=== PATIENT | female | born 1975 | race Caucasian/White ===

== ENCOUNTER 2017-03-23 12:59 | Emergency (ER) | payer BC ==
--- NOTE | 2017-03-23 13:20 | EDM.PDOC ---
ED HPI GENERAL MEDICAL PROBLEM - General Chief Complaint: General Stated Complaint: DENTAL PAIN Time Seen by Provider: 03/23/17 13:10 Source of Information: Reports: Patient History Limitations: Reports: No Limitations - History of Present Illness INITIAL COMMENTS - FREE TEXT/NARRATIVE: History of present illness: [41-year-old female comes in complaining of a broken back tooth. Indicates it is a molar that is fully erupted now cracked at the gum. Complains of pain and facial swelling] Review of systems: As per history of present illness and below otherwise all systems reviewed and negative. Past medical history: As per history of present illness and as reviewed below otherwise noncontributory. Surgical history: As per history of present illness and as reviewed below otherwise noncontributory. Social history: No reported history of drug or alcohol abuse. Family history: As per history of present illness and as reviewed below otherwise noncontributory. Physical exam: HEENT: Atraumatic, right-sided lower jaw facial swelling with some erythema and tenderness, pupils reactive, negative for conjunctival pallor or scleral icterus , mucous membranes moist, throat clear, neck supple, nontender, trachea midline. Lungs: Clear to auscultation, breath sounds equal bilaterally, chest nontender. Heart: S1S2, regular, negative for clicks, rubs, or JVD. Abdomen: Soft, nondistended, nontender. Negative for masses or hepatosplenomegaly. Negative for costovertebral tenderness. Pelvis: Stable nontender. Genitourinary: Deferred. Rectal: Deferred. Extremities: Atraumatic, negative for cords or calf pain. Neurovascular unremarkable. Neuro: Awake, alert, oriented. Cranial nerves II through XII unremarkable. Cerebellum unremarkable. Motor and sensory unremarkable throughout. Exam nonfocal. 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 Right-sided facial swelling with some gum erythema and edema consistent with an oral abscess Diagnostics: [] Therapeutics: [] Impression: Dental abscess] Plan: [Antibiotics and pain medicine followup with dentist] Definitive disposition and diagnosis as appropriate pending reevaluation and review of above. Right Upper Tooth/Teeth Pain Score (Numeric/FACES): 7 - Related Data Allergies Allergy/AdvReac Type Severity Reaction Status Date / Time cefaclor [From Ceclor] Allergy Rash Verified 03/23/17 13:14 cephalexin monohydrate Allergy Rash Verified 03/23/17 13:14 [From Keflex] Home Meds: Home Meds . [No Known Home Meds] 05/11/16 [History] Past Medical History - Infectious Disease History Infectious Disease History: Reports: Chicken Pox - Past Surgical History Female Surgical History: Reports: Section Social & Family History - Family History Family Medical History: Noncontributory - Tobacco Use Smoking Status *Q: Current Every Day Smoker Years of Tobacco use: 20 Packs/Tins Daily: 0.5 - Recreational Drug Use Recreational Drug Use: No ED ROS GENERAL - Review of Systems Review Of Systems: See Below (See history of present illness) ED EXAM, GENERAL - Physical Exam Exam: See Below (See history of present illness) Course - Vital Signs Last Recorded V/S: Last Vital Signs Temp 36.8 C 03/23/17 13:10 Pulse 89 03/23/17 13:10 Resp 19 03/23/17 13:10 BP 125/76 03/23/17 13:10 Pulse Ox 98 03/23/17 13:10 Departure - Departure Time of Disposition: 13:20 Disposition: Home, Self-Care 01 Condition: good Clinical Impression: Abscess - Discharge Information Additional Instructions: The following information is given to patients seen in the emergency department who are being discharged to home. This information is to outline your options for follow-up care. We provide all patients seen in our emergency department with a follow-up referral. The need for follow-up, as well as the timing and circumstances, are variable depending upon the specifics of your emergency department visit. If you don't have a primary care physician on staff, we will provide you with a referral. We always advise you to contact your personal physician following an emergency department visit to inform them of the circumstance of the visit and for follow-up with them and/or the need for any referrals to a consulting specialist. The emergency department will also refer you to a specialist when appropriate. This referral assures that you have the opportunity for follow-up care with a specialist. All of these measure are taken in an effort to provide you with optimal care, which includes your follow-up. Under all circumstances we always encourage you to contact your private physician who remains a resource for coordinating your care. When calling for follow-up care, please make the office aware that this follow-up is from your recent emergency room visit. If for any reason you are refused follow-up, please contact the [facility] Emergency Department at and asked to speak to the emergency department charge nurse. Followup with a dentist SANTY Take medication as directed And to ED as needed as discussed
[2017-03-23 13:56] VITALS: BP 117/65
== END 2017-03-23 13:30 | disposition home or self-care (01) ==
LOC: MW.ED 12:59
DX: K04.7 Periapical abscess without sinus (principal); F17.210 Nicotine dependence, cigarettes, uncomplicated; Z88.1 Allergy status to other antibiotic agents; Z98.890 Other specified postprocedural states
CPT/HCPCS: 99282; 99283

== ENCOUNTER 2017-12-23 19:44 | Emergency (ER) | payer BC ==
--- NOTE | 2017-12-23 19:50 | EDM.PDOC ---
ED HPI GENERAL MEDICAL PROBLEM - General Chief Complaint: Genitourinary Problem Stated Complaint: PELVIC INFECTION Time Seen by Provider: 12/23/17 19:46 Source of Information: Reports: Patient History Limitations: Reports: No Limitations - History of Present Illness INITIAL COMMENTS - FREE TEXT/NARRATIVE: HISTORY AND PHYSICAL: History of present illness: Patient is a 42-year-old female who presents to the emergency room with complaints of white milky vaginal discharge. She states she has noticed this for 2-3 days. Reports she has a history of venereal warts which she had treated when she was in her early 20's. Has not had any concerns since that time. She suddenly she has noticed a "lump" on her right upper labia she is concerned she may have a wart. Reports she is in a monogamous relationship and has had no previous concerns of STI's. Denies any dysuria, frequency or hematuria. Denies any constipation/diarrhea. Denies any fever, chills, abdominal pain, nausea or vomiting. Review of systems: As per history of present illness and below otherwise all systems reviewed and negative. Past medical history: As per history of present illness and as reviewed below otherwise noncontributory. Surgical history: As per history of present illness and as reviewed below otherwise noncontributory. Social history: No reported history of drug or alcohol abuse. Family history: As per history of present illness and as reviewed below otherwise noncontributory. Physical exam: General: Well-developed and well-nourished 42-year-old female. Alert and oriented. Nontoxic appearing and in no acute distress. HEENT: Atraumatic, normocephalic, pupils reactive, negative for conjunctival pallor or scleral icterus, mucous membranes moist, throat clear, neck supple, nontender, trachea midline. Lungs: Clear to auscultation, breath sounds equal bilaterally, chest nontender. Heart: S1S2, regular rate and rhythm Abdomen: Soft, obese, nondistended, nontender. Negative for masses or hepatosplenomegaly. Negative for costovertebral tenderness. Pelvis: Stable nontender. Genitourinary: This was done with a supervisor dock at the bedside. External and internal genitalia appear within normal limits. She does have a skin tag at the 10 o'clock position to the right upper labia, flesh-colored. There is a clear milky discharge from the vagina. Swabs were obtained and sent to lab. No odor noted. Rectal: Deferred. Extremities: Atraumatic, negative for cords or calf pain. Neurovascular unremarkable. Neuro: Awake, alert, oriented. Cranial nerves II through XII unremarkable. Cerebellum unremarkable. Motor and sensory unremarkable throughout. Exam nonfocal. Upon getting the patient prepared for discharge, she asked if we would run and HIV, syphilis and "full STD screening". Although she denies any concerns of STDs she states that "while in here and might swell". I did give her some education on community services that are available for such screenings. She voices understanding and is agreeable to plan of care. She denies any questions at this time. Diagnostics: Gonorrhea, chlamydia, PASQUALE Therapeutics: [] Impression: Bacterial vaginosis Plan: 1. Please take the Flagyl as directed. Alcohol consumption should be avoided during treatment and 24 hours after the last dose. 2. The other vaginal cultures are pending. We will call you if there are any positive results that required treatment. 3. Abstain from sexual intercourse until antibiotic is completed, please have partner be tested ([facility]). 4. Follow up with Primary care. Return to the ED as needed and as discussed. Definitive disposition and diagnosis as appropriate pending reevaluation and review of above. Duration: Day(s): vaginal area Pain Score (Numeric/FACES): 1 - Related Data Allergies Allergy/AdvReac Type Severity Reaction Status Date / Time cefaclor [From Ceclor] Allergy Rash Verified 12/23/17 20:03 cephalexin monohydrate Allergy Rash Verified 12/23/17 20:03 [From Keflex] Home Meds: Home Meds . [No Known Home Meds] 05/11/16 [History] Past Medical History HEENT History: Reports: Impaired Vision Other HEENT History: wear glasses TV [employer] ASSIST[employer] History: Reports: Other Endocrine/Metabolic History: gestational diabetes - Infectious Disease History Infectious Disease History: Reports: Chicken Pox - Past Surgical History Female Surgical History: Reports: Section Social & Family History - Family History Family Medical History: Noncontributory - Tobacco Use Smoking Status *Q: Current Every Day Smoker Years of Tobacco use: 20 Packs/Tins Daily: 0.5 Used Tobacco, but Quit: Yes Month Tobacco Last Used: "2 weeks ago" - Caffeine Use Caffeine Use: Reports: Soda Caffeine Use Comment: 2drinks/day - Recreational Drug Use Recreational Drug Use: No ED ROS GENERAL - Review of Systems Review Of Systems: ROS reveals no pertinent complaints other than HPI. ED EXAM, GI/ABD - Physical Exam Exam: See Below (See dictation) Course - Vital Signs Last Recorded V/S: Last Vital Signs Temp 97.5 F 12/23/17 20:00 Pulse 86 12/23/17 20:00 Resp 18 12/23/17 20:00 BP 134/86 12/23/17 20:00 Pulse Ox 98 12/23/17 20:00 - Orders/Labs/Meds Orders: Active Orders 24 hr Category Date Time Status CHLAMYDIA AND GONORRHEA BY [facility] Stat Lab 12/23/17 20:08 Received Labs: Laboratory Tests 12/23/17 Range/Units 20:08 Verenice species DNA NEGATIVE (NEGATIVE) Gardnerella DNA Probe POSITIVE H (NEGATIVE) Trichomonas DNA Probe NEGATIVE (NEGATIVE) Departure - Departure Time of Disposition: 21:19 Disposition: Home, Self-Care 01 Clinical Impression: Bacterial vaginosis - Discharge Information Instructions: Bacterial Vaginosis, [id number] Referrals: Kenny Dasilva PA [Primary Care Provider] - Forms: ED Department Discharge Additional Instructions: My general discharge The following information is given to patients seen in the emergency department who are being discharged to home. This information is to outline your options for follow-up care. We provide all patients seen in our emergency department with a follow-up referral. The need for follow-up, as well as the timing and circumstances, are variable depending upon the specifics of your emergency department visit. If you don't have a primary care physician on staff, we will provide you with a referral. We always advise you to contact your personal physician following an emergency department visit to inform them of the circumstance of the visit and for follow-up with them and/or the need for any referrals to a consulting specialist. The emergency department will also refer you to a specialist when appropriate. This referral assures that you have the opportunity for follow-up care with a specialist. All of these measure are taken in an effort to provide you with optimal care, which includes your follow-up. Under all circumstances we always encourage you to contact your private physician who remains a resource for coordinating your care. When calling for follow-up care, please make the office aware that this follow-up is from your recent emergency room visit. If for any reason you are refused follow-up, please contact the [facility] Emergency Department at and asked to speak to the emergency department charge nurse. [facility] [address] [place] [id number] 1. Please take the Flagyl as directed. Alcohol consumption should be avoided during treatment and 24 hours after the last dose. 2. The other vaginal cultures are pending. We will call you if there are any positive results that required treatment. 3. Abstain from sexual intercourse until antibiotic is completed, please have partner be tested ([facility]). 4. Follow up with Primary care. Return to the ED as needed and as discussed. . - My Orders Last 24 Hours: My Active Orders 12/23/17 20:08 CHLAMYDIA AND GONORRHEA BY [facility] Stat - Assessment/Plan Last 24 Hours: My Active Orders 12/23/17 20:08 CHLAMYDIA AND GONORRHEA BY [facility] Stat
[2017-12-23 20:10] VITALS: BP 134/86
== END 2017-12-23 21:26 | disposition home or self-care (01) ==
LOC: MW.ED 19:44
DX: N76.0 Acute vaginitis (principal); F17.210 Nicotine dependence, cigarettes, uncomplicated; Z88.1 Allergy status to other antibiotic agents
CPT/HCPCS: 87480; 87491; 87510; 87591; 87660; 99283

== ENCOUNTER 2020-06-28 19:55 | Emergency (ER) | payer BC ==
--- NOTE | 2020-06-28 20:59 | EDM.PDOC ---
ED HPI GENERAL MEDICAL PROBLEM - General Chief Complaint: Fever Stated Complaint: FEVER NOT ABLE TO BREAK Time Seen by Provider: 06/28/20 20:00 Source of Information: Reports: Patient, Old Records History Limitations: Reports: No Limitations - History of Present Illness INITIAL COMMENTS - FREE TEXT/NARRATIVE: 45-year-old female past medical history of biliary colic and cholelithiasis presenting with chest discomfort and infectious symptoms. Patient was diagnosed with COVID-19 approximately 1 week ago. She complains of intermittent high fevers to 104 Fahrenheit, malaise, orthopnea, and chest discomfort. She states that she is unable to sleep lying flat at night because she develops chest discomfort and has to sit up. She reports intermittent substernal chest pain described as "pressure" that lasts for a few seconds at a time. It has never lasted for more than a few minutes. Nothing makes this better or worse. The chest discomfort does not radiate. Denies hemoptysis, vomiting, diarrhea. Patient denies history of venous thromboembolism, lower extremity pain or swelling, hemoptysis, recent surgery or immobilization or long travel, history of active malignancy, or hormonal medication/product usage. ROS: A 10-point review of systems was negative, except as noted in the HPI (or in the ROS section of this note). Past medical history: Reviewed, no additional pertinent history. Surgical history: Reviewed in system, no additional pertinent history. Social history: Reviewed in system, no additional pertinent history. Family history: Reviewed in system, no additional pertinent history. Limited physical examination was performed due to COVID pandemic, distanced physical examination to prevent physician exposure and to preserve PPE. Vital signs reviewed. Nursing notes reviewed. Constitutional: Awake, alert, non-distressed. Head: Normocephalic, atraumatic. Eyes: No scleral icterus. Neck: Able to fully flex and extend. Fully rotates side to side. Cardiovascular: No extremity edema. Pulmonary: normal work of breathing, no accessory muscle use. Speaking in full sentences, handling secretions well. Abdomen/GI: nondistended Musculoskeletal: No deformities. Integumentary: Appropriate color for ethnicity, warm, dry, no pallor or jaundice, no rash. Neurologic: Alert, answering questions appropriately, normal speech, no facial droop, moving all extremities well. Normal voice. Psychiatric: Appropriate mood and affect, normal thought process. Headache Pain Score (Numeric/FACES): 4 - Related Data Allergies Allergy/AdvReac Type Severity Reaction Status Date / Time cefaclor [From Ceclor] Allergy Rash Verified 06/28/20 20:27 cephalexin monohydrate Allergy Rash Verified 06/28/20 20:27 [From Keflex] Home Meds: Home Meds Ferrous Sulfate 325 mg PO DAILY #60 tablet 06/28/20 [Rx] Past Medical History HEENT History: Reports: Impaired Vision Other HEENT History: wear glasses Cardiovascular History: Reports: None Respiratory History: Reports: Other (See Below) Other Respiratory History: walking pneumonia Gastrointestinal History: Reports: Cholelithiasis Genitourinary History: Reports: None [employer] History: Reports: Musculoskeletal History: Reports: None Neurological History: Reports: None Psychiatric History: Reports: None Endocrine/Metabolic History: Reports: Diabetes, Gestational, Obesity/BMI 30+ Other Endocrine/Metabolic History: gestational diabetes Hematologic History: Reports: None Immunologic History: Reports: None Oncologic (Cancer) History: Reports: None Dermatologic History: Reports: None - Infectious Disease History Infectious Disease History: Reports: Chicken Pox - Past Surgical History Head Surgeries/Procedures: Reports: None GI Surgical History: Reports: Cholecystectomy Female Surgical History: Reports: Section, Other (See Below) Other Female Surgeries/Procedures: laser surgery cervix Social & Family History - Family History Family Medical History: Noncontributory - Tobacco Use Smoking Status *Q: Never Smoker Second Hand Smoke Exposure: No - Caffeine Use Caffeine Use: Reports: Soda Caffeine Use Comment: 2drinks/day - Recreational Drug Use Recreational Drug Use: No ED ROS GENERAL - Review of Systems Review Of Systems: See Below ED EXAM, GENERAL - Physical Exam Exam: See Below EKG INTERPRETATION EKG Interpretation Comments: 12-Lead ECG Interpretation Acquired: 2054 Rhythm: Sinus rhythm Rate: 89 bpm [place]: Normal Intervals: Normal Ectopy: None Ischemic Changes: None apparent RV Strain: No obvious RV strain pattern. ST Segments/T-Waves: No notable changes Interpretation: Unremarkable Course - Vital Signs Text/Narrative:: Patient hemodynamically stable, afebrile, well-appearing, looks nontoxic. Differential diagnosis includes but is not limited to: COVID-19, ACS, pulmonary embolism, aortic dissection, acute systolic heart failure, pneumonia, pneumothorax, pericardial effusion, pleural effusion, pericarditis, endocard itis, esophageal rupture, GERD, drug-induced chest pain, chest wall pain, and many others. Labs show leukopenia, microcytic anemia, normal platelet count. Normal INR. Slight hypokalemia. Elevated CRP. Negative troponin, normal LFTs. Negative test. Clear chest x-ray. Twelve-lead EKG nonischemic. No objective evidence of acute coronary syndrome. Low suspicion for PE given lack of dyspnea, patient is not tachypneic or hypoxic or tachycardic. No RV strain pattern on EKG. No evidence of a pulmonary infiltrate on x-ray to suggest pneumonia. Afebrile here. No clinical evidence of congestive heart failure. Low suspicion for aortic dissection given lack of radiation of pain to the back and the fact the patient is not significantly hypertensive. Chest discomfort and other symptoms are typical for known COVID-19 infection. No evidence of a more serious or acute process that would require antibiotics or admission to the hospital at this point. We discussed symptomatic treatment including [id number] acetaminophen and ibuprofen for fever and body aches, plenty of fluids. Discussed return precautions including worsening chest pain or shortness of breath. Will prescribe a course of iron supplementation for the microcytic anemia and have her follow-up in a family medicine clinic in the next 1 to 2 months for reevaluation of her anemia. Plan: Patient is stable to discharge home with outpatient primary care clinic follow-up. Strict emergency department return precautions were provided, patient indicated understanding. All questions were answered prior to departure. Discharged in good condition. Last Recorded V/S: Last Vital Signs Temp 36.7 C 06/28/20 20:28 Pulse 94 06/28/20 21:29 Resp 20 06/28/20 21:29 BP 141/91 H 06/28/20 21:29 Pulse Ox 93 L 06/28/20 21:29 - Orders/Labs/Meds Orders: Active Orders 24 hr Category Date Time Status EKG Documentation Completion [RC] STAT Care 06/28/20 20:38 Active Isolation [COMM] Stat Oth 06/28/20 20:33 Active Labs: Laboratory Tests 06/28/20 06/28/20 06/28/20 Range/Units 21:07 21:07 21:07 WBC 3.72 L (4.0-11.0) K/uL RBC 4.63 (4.30-5.90) M/uL Hgb 9.2 L (12.0-16.0) g/dL Hct 31.6 L (36.0-46.0) % MCV 68.3 L (80.0-98.0) fL MCH 19.9 L (27.0-32.0) pg MCHC 29.1 L (31.0-37.0) g/dL RDW Std Deviation 42.7 (28.0-62.0) fl RDW Coeff of Mei 17 H (11.0-15.0) % Plt Count 207 (150-400) K/uL MPV 9.70 (7.40-12.00) fL Neut % (Auto) 62.2 (48.0-80.0) % Lymph % (Auto) 34.1 (16.0-40.0) % [place] % (Auto) 3.2 (0.0-15.0) % Eos % (Auto) 0.5 (0.0-7.0) % Baso % (Auto) 0.0 (0.0-1.5) % Neut # (Auto) 2.3 (1.4-5.7) K/uL Lymph # (Auto) 1.3 (0.6-2.4) K/uL [place] # (Auto) 0.1 (0.0-0.8) K/uL Eos # (Auto) 0.0 (0.0-0.7) K/uL Baso # (Auto) 0.0 (0.0-0.1) K/uL Nucleated RBC % 0.0 /100WBC Nucleated RBCs # 0 K/uL INR Sodium 137 (136-145) mmol/L Potassium 3.4 L (3.5-5.1) mmol/L Chloride 101 (98-107) mmol/L Carbon Dioxide 25.7 (21.0-32.0) mmol/L BUN 7 (7.0-18.0) mg/dL Creatinine 0.8 (0.6-1.0) mg/dL Est Cr Clr Drug Dosing 78.30 mL/min Estimated GFR (MDRD) > 60.0 ml/min Glucose 118 H (74-106) mg/dL Calcium 8.0 L (8.5-10.1) mg/dL Total Bilirubin 0.2 (0.2-1.0) mg/dL AST 25 (15-37) IU/L ALT 37 (14-63) IU/L Alkaline Phosphatase 94 (46-116) U/L Troponin I < 0.050 (0.000-0.056) ng/mL C-Reactive Protein 4.80 H (0.00-0.90) mg/dL B-Natriuretic Peptide (<100) PG/ML Total Protein 7.1 (6.4-8.2) g/dL Albumin 3.4 (3.4-5.0) g/dL Globulin 3.7 (2.6-4.0) g/dL Albumin/Globulin Ratio 0.9 (0.9-1.6) HCG, Qual NEGATIVE (NEG) 06/28/20 06/28/20 Range/Units 21:07 21:07 WBC (4.0-11.0) K/uL RBC (4.30-5.90) M/uL Hgb (12.0-16.0) g/dL Hct (36.0-46.0) % MCV (80.0-98.0) fL MCH (27.0-32.0) pg MCHC (31.0-37.0) g/dL RDW Std Deviation (28.0-62.0) fl RDW Coeff of Mei (11.0-15.0) % Plt Count (150-400) K/uL MPV (7.40-12.00) fL Neut % (Auto) (48.0-80.0) % Lymph % (Auto) (16.0-40.0) % [place] % (Auto) (0.0-15.0) % Eos % (Auto) (0.0-7.0) % Baso % (Auto) (0.0-1.5) % Neut # (Auto) (1.4-5.7) K/uL Lymph # (Auto) (0.6-2.4) K/uL [place] # (Auto) (0.0-0.8) K/uL Eos # (Auto) (0.0-0.7) K/uL Baso # (Auto) (0.0-0.1) K/uL Nucleated RBC % /100WBC Nucleated RBCs # K/uL INR 0.97 Sodium (136-145) mmol/L Potassium (3.5-5.1) mmol/L Chloride (98-107) mmol/L Carbon Dioxide (21.0-32.0) mmol/L BUN (7.0-18.0) mg/dL Creatinine (0.6-1.0) mg/dL Est Cr Clr Drug Dosing mL/min Estimated GFR (MDRD) ml/min Glucose (74-106) mg/dL Calcium (8.5-10.1) mg/dL Total Bilirubin (0.2-1.0) mg/dL AST (15-37) IU/L ALT (14-63) IU/L Alkaline Phosphatase (46-116) U/L Troponin I (0.000-0.056) ng/mL C-Reactive Protein (0.00-0.90) mg/dL B-Natriuretic Peptide 7 (<100) PG/ML Total Protein (6.4-8.2) g/dL Albumin (3.4-5.0) g/dL Globulin (2.6-4.0) g/dL Albumin/Globulin Ratio (0.9-1.6) HCG, Qual (NEG) Departure - Departure Time of Disposition: 22:37 Disposition: Home, Self-Care 01 Condition: Good Clinical Impression: COVID-19 virus infection, Atypical chest pain Iron deficiency anemia Qualifiers: Iron deficiency anemia type: other iron deficiency Qualified Code(s): D50.8 - Other iron deficiency anemias Prescriptions: Ferrous Sulfate 325 mg PO DAILY #60 tablet Instructions: COVID-19 Frequently Asked Questions, Preventing Iron Deficiency Anemia, Adult, Anemia, Nonspecific Chest Pain, Adult, COVID-19: How to Protect Yourself and Others - CDC Referrals: [facility] - Family Practice [Provider Group] - 1 Week Forms: ED Department Discharge Additional Instructions: You were seen in the emergency department for chest pain and fever. Your blood work and x-rays look reassuring at this point. It is not uncommon to have chest pain with a COVID infection. If your chest pain worsens or if you have trouble breathing come back to the ER right away. You do have iron deficiency anemia by your blood work and we prescribed an iron supplement. Take this as directed and follow-up with family medicine clinic in the next 1 to 2 months for reevaluation. Please return the emergency department immediately if your symptoms worsen or if you feel worse. Thank you for choosing the [facility] emergency department in [place] for your medical needs today. It was a pleasure caring for you. The following information is given to patients seen in the emergency department who are being discharged. This information is to outline your options for follow-up care. We provide all patients seen in our emergency department with a follow-up referral. The need for follow-up, as well as the timing and circumstances, are variable depending upon the specifics of your emergency department visit. If you don't have a primary care physician on staff, we will provide you with a referral. We always advise you to contact your personal physician following an emergency department visit to inform them of the circumstance of the visit and for follow-up with them and/or the need for any referrals to a consulting specialist. The emergency department will also refer you to a specialist when appropriate. This referral assures that you have the opportunity for follow-up care with a specialist. All of these measure are taken in an effort to provide you with optimal care, which includes your follow-up. Under all circumstances we always encourage you to contact your private physician who remains a resource for coordinating your care. When calling for follow-up care, please make the office aware that this follow-up is from your recent emergency room visit. If for any reason you are refused follow-up, please contact the [facility] Emergency Department at and asked to speak to the emergency department charge nurse. If you do not have a primary care physician that is caring for you, you can contact these clinics below to set up an appointment to establish care: [facility] - Primary Care [address] [place] [id number] [facility] [address] [place] [id number] Sepsis Event Note (ED) - Evaluation Sepsis Screening Result: Possible Sepsis Risk - Focused Exam Vital Signs: Vital Signs Temp Pulse Resp BP Pulse Ox 06/28/20 21:29 94 20 141/91 H 93 L 06/28/20 20:28 36.7 C 99 18 141/91 H 96 - My Orders Last 24 Hours: My Active Orders 06/28/20 20:33 Isolation [COMM] Stat 06/28/20 20:38 EKG Documentation Completion [RC] STAT - Assessment/Plan Last 24 Hours: My Active Orders 06/28/20 20:33 Isolation [COMM] Stat 06/28/20 20:38 EKG Documentation Completion [RC] STAT
[2020-06-28 21:34] VITALS: PULSE 94
[2020-06-28 21:38] LABS: BLOOD UREA NITROGEN,BUN 7 mg/dL (7.0-18.0); CARBON DIOXIDE,CO2 25.7 mmol/L (21.0-32.0); CHLORIDE,CL 101 mmol/L (98-107); GLUCOSE RANDOM 118 mg/dL (74-106); POTASSIUM,K 3.4 mmol/L (3.5-5.1); SODIUM,NA 137 mmol/L (136-145)
--- NOTE | 2020-06-28 22:23 | CR ---
Chest: Portable view of the chest was obtained. Comparison: No prior chest x-rays available. Heart size is felt to be slightly prominent due to portable technique. Upper mediastinum is normal. Lungs are clear with no acute parenchymal change. Bony structures are grossly intact. Impression: 1. Nothing acute is seen on portable chest x-ray. Diagnostic code #1 Study was dictated in MDT
[2020-06-28 23:05] VITALS: BP 130/82
== END 2020-06-28 22:57 | disposition home or self-care (01) ==
LOC: MW.ED 19:55
DX: U07.1 COVID-19 (principal); R07.89 Other chest pain; D50.9 Iron deficiency anemia, unspecified; E66.9 Obesity, unspecified; Z68.43 Body mass index [BMI] 50.0-59.9, adult; Z88.1 Allergy status to other antibiotic agents; Z79.899 Other long term (current) drug therapy; Z90.49 Acquired absence of other specified parts of digestive tract
CPT/HCPCS: 36415; 71045; 71045-26; 80053; 83880; 84484; 84703; 85025; 85610; 86140; 93005; 99283; 99285-25

== ENCOUNTER 2020-07-02 13:08 | Inpatient (IN) | payer BC, OTHER ==
[2020-07-02] MEDS ORDERED: Albuterol 8 GM Inhaler INH ONE (13:31)
[2020-07-02] MEDS ORDERED: Dexamethasone 4 MG Tab PO ONE (13:34)
--- NOTE | 2020-07-02 13:34 | EDM.PDOC ---
ED HPI GENERAL MEDICAL PROBLEM - General Chief Complaint: Respiratory Problem Stated Complaint: SOB COVID Time Seen by Provider: 07/02/20 13:22 - History of Present Illness INITIAL COMMENTS - FREE TEXT/NARRATIVE: History of present illness: Patient has positive COVID testing has been sick for approximately 8 days she has had increasing shortness of breath and increasing productive cough over the past 24 hours and became concerned about her breathing and came to the emergency department she denies any fever chills this time she had been having fevers and is taking Tylenol [id number] but no noted fevers in the last couple days she denies any leg pain leg swelling no chest pain nothing seems to make it better or worse she is a non-smoker no history of asthma Review of systems: As per history of present illness and below otherwise all systems reviewed and negative. Past medical history: As per history of present illness and as reviewed below otherwise noncontributory. Surgical history: As per history of present illness and as reviewed below otherwise noncontributory. Social history: No reported history of drug or alcohol abuse. Family history: As per history of present illness and as reviewed below otherwise noncontributory. Physical exam: HEENT: Atraumatic, normocephalic, pupils reactive, negative for conjunctival pallor or scleral icterus, mucous membranes moist, throat clear, neck supple, no ntender, trachea midline. Lungs: Clear to auscultation, breath sounds equal bilaterally, chest nontender. No respiratory distress no increased work of breathing Heart: S1S2, regular, negative for clicks, rubs, or JVD. Abdomen: Soft, nondistended, nontender. Negative for masses or hepatosplenomegaly. Negative for costovertebral tenderness. Pelvis: Stable nontender. Genitourinary: Deferred. Rectal: Deferred. Extremities: Atraumatic, negative for cords or calf pain. Neurovascular unremarkable. Neuro: Awake, alert, oriented. Cranial nerves II through XII unremarkable. Cerebellum unremarkable. Motor and sensory unremarkable throughout. Exam nonfocal. Diagnostics: [] Therapeutics: [] Impression: COVID, dyspnea [] Plan: She will get some albuterol inhaler Decadron incentive spirometry and I will check a chest x-ray. [] Definitive disposition and diagnosis as appropriate pending reevaluation and review of above. - Related Data Allergies Allergy/AdvReac Type Severity Reaction Status Date / Time cefaclor [From Ceclor] Allergy Rash Verified 07/02/20 18:54 cephalexin monohydrate Allergy Rash Verified 07/02/20 18:54 [From Keflex] Home Meds: Home Meds Ferrous Sulfate 325 mg PO DAILY #60 tablet 06/28/20 [Rx] Past Medical History HEENT History: Reports: Impaired Vision Other HEENT History: wear glasses Cardiovascular History: Reports: None Respiratory History: Reports: Other (See Below) Other Respiratory History: walking pneumonia Gastrointestinal History: Reports: Cholelithiasis Genitourinary History: Reports: None [employer]PUT[employer] History: Reports: Musculoskeletal History: Reports: None Neurological History: Reports: None Psychiatric History: Reports: None Endocrine/Metabolic History: Reports: Diabetes, Gestational, Obesity/BMI 30+ Other Endocrine/Metabolic History: gestational diabetes Hematologic History: Reports: None Immunologic History: Reports: None Oncologic (Cancer) History: Reports: None Dermatologic History: Reports: None - Infectious Disease History Infectious Disease History: Reports: Chicken Pox - Past Surgical History Head Surgeries/Procedures: Reports: None GI Surgical History: Reports: Cholecystectomy Female Surgical History: Reports: Section, Other (See Below) Other Female Surgeries/Procedures: laser surgery cervix Social & Family History - Family History Family Medical History: Noncontributory - Caffeine Use Caffeine Use: Reports: Soda Caffeine Use Comment: 2drinks/day ED ROS GENERAL - Review of Systems Review Of Systems: See Below ED EXAM, GENERAL - Physical Exam Exam: See Below EKG INTERPRETATION EKG Interpretation Comments: EKG is normal sinus rhythm rate of [address]-T changes no alex ischemia read and interpreted by me Course - Vital Signs Last Recorded V/S: Last Vital Signs Temp 36.6 C 07/03/20 15:06 Pulse 79 07/03/20 15:06 Resp 18 07/03/20 15:06 BP 147/90 H 07/03/20 15:06 Pulse Ox 92 L 07/03/20 15:06 - Orders/Labs/Meds Orders: Active Orders 24 hr Category Date Time Status Ferrous Sulfate Med 07/03/20 09:00 Active 325 mg PO DAILY Medication Orders Albuterol/Ipratropium (Combivent Respimat) 0 gm INH Q4H PRN PRN Reason: Dyspnea Last Admin: 07/03/20 15:08 Dose: 1 puff Documented by: Admin: 07/03/20 04:38 Dose: 1 puff Documented by: Admin: 07/02/20 21:11 Dose: 1 inhalation Documented by: MERRILL Dexamethasone (Dexamethasone) 6 mg PO DAILY [facility] Last Admin: 07/03/20 08:43 Dose: 6 mg Documented by: GENEVIEVE Enoxaparin Sodium (Lovenox) 130 mg SUBCUT Q12H [facility] Last Admin: 07/03/20 18:40 Dose: 130 mg Documented by: Admin: 07/03/20 08:41 Dose: 130 mg Documented by: Admin: 07/03/20 02:14 Dose: Not Given Documented by: MERRILL Ferrous Sulfate (Ferrous Sulfate) 325 mg PO DAILY [facility] Last Admin: 07/03/20 08:43 Dose: 325 mg Documented by: GENEVIEVE Guaifenesin (Robitussin) 100 mg PO Q4H PRN PRN Reason: Cough Ceftriaxone Sodium 1 gm/ (Sodium Chloride) 50 mls @ 100 mls/hr IV Q24H [facility] Last Admin: 07/02/20 20:07 Dose: 100 mls/hr Documented by: MERRILL Azithromycin 500 mg/ Sodium (Chloride) 250 mls @ 250 mls/hr IV Q24H [facility] Last Admin: 07/02/20 20:54 Dose: 250 mls/hr Documented by: MERRILL Insulin Aspart (Novolog) 0 unit SUBCUT TIDAC [facility]; Protocol Last Admin: 07/03/20 18:37 Dose: 3 unit Documented by: Admin: 07/03/20 13:38 Dose: 2 unit Documented by: GENEVIEVE Ondansetron HCl (Zofran) 4 mg IVPUSH Q4H PRN PRN Reason: Nausea Last Admin: 07/02/20 21:14 Dose: 4 mg Documented by: MERRILL Labs: Laboratory Tests 07/02/20 07/02/20 07/02/20 Range/Units 14:40 14:46 14:46 WBC 3.20 L (4.0-11.0) K/uL RBC 4.49 (4.30-5.90) M/uL Hgb 8.9 L (12.0-16.0) g/dL Hct 30.4 L (36.0-46.0) % MCV 67.7 L (80.0-98.0) fL MCH 19.8 L (27.0-32.0) pg MCHC 29.3 L (31.0-37.0) g/dL RDW Std Deviation 44.2 (28.0-62.0) fl RDW Coeff of Mei 18 H (11.0-15.0) % Plt Count 258 (150-400) K/uL MPV 9.20 (7.40-12.00) fL Neut % (Auto) 70.3 (48.0-80.0) % Lymph % (Auto) 26.6 (16.0-40.0) % [place] % (Auto) 2.8 (0.0-15.0) % Eos % (Auto) 0.0 (0.0-7.0) % Baso % (Auto) 0.3 (0.0-1.5) % Neut # (Auto) 2.3 (1.4-5.7) K/uL Lymph # (Auto) 0.9 (0.6-2.4) K/uL [place] # (Auto) 0.1 (0.0-0.8) K/uL Eos # (Auto) 0.0 (0.0-0.7) K/uL Baso # (Auto) 0.0 (0.0-0.1) K/uL Nucleated RBC % 0.0 /100WBC Nucleated RBCs # 0 K/uL Lactate (0.20-2.00) mmol/L Sodium 137 (136-145) mmol/L Potassium 3.5 (3.5-5.1) mmol/L Chloride 101 (98-107) mmol/L Carbon Dioxide 28.9 (21.0-32.0) mmol/L BUN 7 (7.0-18.0) mg/dL Creatinine 0.8 (0.6-1.0) mg/dL Est Cr Clr Drug Dosing 78.30 mL/min Estimated GFR (MDRD) > 60.0 ml/min Glucose 177 H (74-106) mg/dL Calcium 8.3 L (8.5-10.1) mg/dL Total Bilirubin 0.2 (0.2-1.0) mg/dL AST 62 H (15-37) IU/L ALT 73 H (14-63) IU/L Alkaline Phosphatase 104 (46-116) U/L Troponin I (0.000-0.056) ng/mL B-Natriuretic Peptide (<100) PG/ML Total Protein 6.9 (6.4-8.2) g/dL Albumin 3.1 L (3.4-5.0) g/dL Globulin 3.8 (2.6-4.0) g/dL Albumin/Globulin Ratio 0.8 L (0.9-1.6) SARS Virus RNA (PCR) POSITIVE H (NEGATIVE) 07/02/20 07/02/20 07/02/20 Range/Units 14:46 14:46 14:46 WBC (4.0-11.0) K/uL RBC (4.30-5.90) M/uL Hgb (12.0-16.0) g/dL Hct (36.0-46.0) % MCV (80.0-98.0) fL MCH (27.0-32.0) pg MCHC (31.0-37.0) g/dL RDW Std Deviation (28.0-62.0) fl RDW Coeff of Mei (11.0-15.0) % Plt Count (150-400) K/uL MPV (7.40-12.00) fL Neut % (Auto) (48.0-80.0) % Lymph % (Auto) (16.0-40.0) % [place] % (Auto) (0.0-15.0) % Eos % (Auto) (0.0-7.0) % Baso % (Auto) (0.0-1.5) % Neut # (Auto) (1.4-5.7) K/uL Lymph # (Auto) (0.6-2.4) K/uL [place] # (Auto) (0.0-0.8) K/uL Eos # (Auto) (0.0-0.7) K/uL Baso # (Auto) (0.0-0.1) K/uL Nucleated RBC % /100WBC Nucleated RBCs # K/uL Lactate 1.1 (0.20-2.00) mmol/L Sodium (136-145) mmol/L Potassium (3.5-5.1) mmol/L Chloride (98-107) mmol/L Carbon Dioxide (21.0-32.0) mmol/L BUN (7.0-18.0) mg/dL Creatinine (0.6-1.0) mg/dL Est Cr Clr Drug Dosing mL/min Estimated GFR (MDRD) ml/min Glucose (74-106) mg/dL Calcium (8.5-10.1) mg/dL Total Bilirubin (0.2-1.0) mg/dL AST (15-37) IU/L ALT (14-63) IU/L Alkaline Phosphatase (46-116) U/L Troponin I < 0.050 (0.000-0.056) ng/mL B-Natriuretic Peptide 59 (<100) PG/ML Total Protein (6.4-8.2) g/dL Albumin (3.4-5.0) g/dL Globulin (2.6-4.0) g/dL Albumin/Globulin Ratio (0.9-1.6) SARS Virus RNA (PCR) (NEGATIVE) Meds: Medications Generic Name Dose Route Start Last Admin Trade Name Freq PRN Reason Stop Dose Admin Albuterol/Ipratropium 0 gm 07/02/20 17:08 07/03/20 15:08 Combivent Respimat INH 1 puff Q4H PRN Administration Dyspnea Dexamethasone 6 mg 07/03/20 09:00 07/03/20 08:43 Dexamethasone PO 6 mg DAILY MIRANDA Administration Enoxaparin Sodium 130 mg 07/02/20 19:30 07/03/20 18:40 Lovenox SUBCUT 130 mg Q12H MIRANDA Administration Ferrous Sulfate 325 mg 07/03/20 09:00 07/03/20 08:43 Ferrous Sulfate PO 325 mg DAILY MIRANDA Administration Guaifenesin 100 mg 07/03/20 15:40 Robitussin PO Q4H PRN Cough Ceftriaxone Sodium 1 gm/ 50 mls @ 100 mls/hr 07/02/20 19:45 07/02/20 20:07 Sodium Chloride IV 100 mls/hr Q24H MIRANDA Administration Azithromycin 500 mg/ Sodium 250 mls @ 250 mls/hr 07/02/20 19:45 07/02/20 20:54 Chloride IV 250 mls/hr Q24H MIRANDA Administration Insulin Aspart 0 unit 07/03/20 11:30 07/03/20 18:37 Novolog SUBCUT 3 unit TIDAC MIRANDA Administration Protocol Ondansetron HCl 4 mg 07/02/20 17:00 07/02/20 21:14 Zofran IVPUSH 4 mg Q4H PRN Administration Nausea Discontinued Medications Generic Name Dose Route Start Last Admin Trade Name Freq PRN Reason Stop Dose Admin Acetaminophen 650 mg 07/02/20 17:00 Tylenol PO Q4H PRN Pain (Mild 1-3)/fever Albuterol 4 gm 07/02/20 13:31 07/02/20 13:52 Ventolin Hfa INH 07/02/20 13:32 Not Given ONETIME ONE Albuterol 4 gm 07/02/20 13:45 07/02/20 13:51 Ventolin Hfa INH 07/02/20 13:46 2 puff ONETIME ONE Administration Dexamethasone 8 mg 07/02/20 13:34 07/02/20 14:02 Dexamethasone PO 07/02/20 13:35 8 mg ONETIME ONE Administration Enoxaparin Sodium 40 mg 07/02/20 17:00 07/02/20 18:39 Lovenox SUBCUT 40 mg Q24H MIRANDA Administration Piperacillin Sod/Tazobactam 50 mls @ 100 mls/hr 07/02/20 14:29 07/02/20 15:06 Sod 3.375 gm/ Sodium Chloride IV 07/02/20 14:58 100 mls/hr ONETIME ONE Administration Vancomycin HCl 1.5 gm/ Sodium 500 mls @ 333 mls/hr 07/02/20 14:30 07/02/20 15:18 Chloride IV 07/02/20 16:00 Not Given ONETIME ONE Vancomycin HCl 1.5 gm/ Premix 300 mls @ 300 mls/hr 07/02/20 15:01 07/02/20 15:11 IV 07/02/20 15:02 300 mls/hr ONETIME ONE Administration Vancomycin HCl 1.5 gm/ Premix 300 mls @ 300 mls/hr 07/02/20 15:17 07/02/20 17:48 IV 07/02/20 15:18 Not Given ONETIME ONE REMDESIVIR (EUA) 200 mg/ 250 mls @ 250 mls/hr 07/02/20 19:32 07/02/20 22:05 Sodium Chloride IV 07/02/20 19:33 250 mls/hr ONETIME ONE Administration Insulin Aspart 0 unit 07/03/20 17:00 Novolog SUBCUT TIDAC [facility] Protocol Departure - Departure Time of Disposition: 17:00 Disposition: Refer to Observation Clinical Impression: COVID-19 virus infection - Discharge Information Sepsis Event Note (ED) - Evaluation Sepsis Screening Result: No Definite Risk
[2020-07-02] MEDS ORDERED: Albuterol HFA 18 Gm Inhaler INH ONE (13:45)
--- NOTE | 2020-07-02 14:05 | CR ---
Chest: Portable view of the chest was obtained. Comparison: Prior chest x-ray of 06/28/20. Increasing lung markings from prior exam. Heart is enlarged. Upper mediastinum is normal. Impression: 1. Increasing lung markings are noted from prior study. Findings could represent mild CHF with differential including diffuse bronchitis. Diagnostic code #3 This report was dictated in MDT
[2020-07-02] MEDS ORDERED: Piperacillin/Tazobactam 3.375 GM in Sodium Chloride 0.9% 50 ML IV ONE (14:29)
[2020-07-02] MEDS ORDERED: Vancomycin 1.5 GM in Sodium Chloride 0.9% 500 ML IV ONE (14:30)
[2020-07-02 15:24] LABS: BLOOD UREA NITROGEN,BUN 7 mg/dL (7.0-18.0); CARBON DIOXIDE,CO2 28.9 mmol/L (21.0-32.0); CHLORIDE,CL 101 mmol/L (98-107); GLUCOSE RANDOM 177 mg/dL (74-106); POTASSIUM,K 3.5 mmol/L (3.5-5.1); SODIUM,NA 137 mmol/L (136-145)
--- NOTE | 2020-07-02 16:52 | PCM.HP.2 ---
<Luca Avilez - Last Filed: 07/02/20 19:38> H&P History of Present Illness - General Date of Service: 07/02/20 Admit Problem/Dx: Admission Diagnosis/Problem Admission Diagnosis/Problem Hypoxia Source of Information: Patient History Limitations: Reports: No Limitations - History of Present Illness Initial Comments - Free Text/Narative: Patient admitted for dyspnea secondary to COVID infection. Patient states that she first tested positive for COVID 10 days ago but did not have any significant symptoms. Patient states that her symptoms of SOB and cough have become significantly worse in the past 24 hrs. She denies fever or chills but states diarrhea, nausea and loss of appetite. Patient was having fever the past few days which she was treating with Tylenol but is not having fevers currently. Patient has no cardiac, respiratory or GI PMH. Patient quit smoking 3 years ago and denies asthma. Pt denies using oxygen at home but is requiring between 2-3L O2 at time of admission. - Related Data Allergies/Adverse Reactions: Allergies Allergy/AdvReac Type Severity Reaction Status Date / Time cefaclor [From Ceclor] Allergy Rash Verified 07/02/20 18:54 cephalexin monohydrate Allergy Rash Verified 07/02/20 18:54 [From Keflex] Home Medications: Home Meds Ferrous Sulfate 325 mg PO DAILY #60 tablet 06/28/20 [Rx] Past Medical History HEENT History: Reports: Impaired Vision Other HEENT History: wear glasses Cardiovascular History: Reports: None Respiratory History: Reports: Other (See Below) Other Respiratory History: walking pneumonia Gastrointestinal History: Reports: Cholelithiasis Genitourinary History: Reports: None [employer] History: Reports: Musculoskeletal History: Reports: None Neurological History: Reports: None Psychiatric History: Reports: None Endocrine/Metabolic History: Reports: Diabetes, Gestational, Obesity/BMI 30+ Other Endocrine/Metabolic History: gestational diabetes Hematologic History: Reports: None Immunologic History: Reports: None Oncologic (Cancer) History: Reports: None Dermatologic History: Reports: None - Infectious Disease History Infectious Disease History: Reports: Chicken Pox - Past Surgical History Head Surgeries/Procedures: Reports: None GI Surgical History: Reports: Cholecystectomy Female Surgical History: Reports: Section, Other (See Below) Other Female Surgeries/Procedures: laser surgery cervix Social & Family History - Family History Family Medical History: Noncontributory - Caffeine Use Caffeine Use: Reports: Soda Caffeine Use Comment: 2drinks/day H&P Review of Systems - Review of Systems: Review Of Systems: See Below General: Reports: Fatigue, Decreased Appetite. Denies: Fever, Chills HEENT: Denies: Dysphasia, Headaches, Visual Changes Pulmonary: Reports: Shortness of Breath, Cough. Denies: Wheezing, Pleuritic Chest Pain, Sputum Cardiovascular: Reports: Dyspnea on Exertion, Orthopnea. Denies: Chest Pain, Palpitations, Edema, Lightheadedness Gastrointestinal: Reports: Diarrhea, Decreased Appetite, Nausea. Denies: Abdominal Pain Musculoskeletal: Denies: Joint Swelling, Muscle Stiffness Psychiatric: Denies: Confusion Neurological: Denies: Confusion, Dizziness, Headache, Numbness Exam - Exam Exam: See Below - Vital Signs Vital Signs: Last Vital Signs Temp 96.3 F L 07/02/20 13:11 Pulse 83 07/02/20 15:14 Resp 16 07/02/20 13:11 BP 129/57 L 07/02/20 15:14 Pulse Ox 93 L 07/02/20 15:52 Weight: 131.542 kg - Exam General: Alert, Oriented HEENT: EOMI, Hearing Intact, Mucosa Moist & [place] Lungs: Clear to Auscultation, Normal Respiratory Effort. No: Wheezing Cardiovascular: Regular Rate, Regular Rhythm GI/Abdominal Exam: Soft, Non-Tender, No Distention Extremities: No Pedal Edema, Joint Swelling Neuro Extensive - Mental Status: Alert, Oriented x3, Normal Mood/Affect - Patient Data Lab Results Last 24 hrs: Laboratory Results - last 24 hr 07/02/20 07/02/20 07/02/20 Range/Units 14:46 14:46 14:46 WBC 3.20 L (4.0-11.0) K/uL RBC 4.49 (4.30-5.90) M/uL Hgb 8.9 L (12.0-16.0) g/dL Hct 30.4 L (36.0-46.0) % MCV 67.7 L (80.0-98.0) fL MCH 19.8 L (27.0-32.0) pg MCHC 29.3 L (31.0-37.0) g/dL RDW Std Deviation 44.2 (28.0-62.0) fl RDW Coeff of Mei 18 H (11.0-15.0) % Plt Count 258 (150-400) K/uL MPV 9.20 (7.40-12.00) fL Neut % (Auto) 70.3 (48.0-80.0) % Lymph % (Auto) 26.6 (16.0-40.0) % [place] % (Auto) 2.8 (0.0-15.0) % Eos % (Auto) 0.0 (0.0-7.0) % Baso % (Auto) 0.3 (0.0-1.5) % Neut # (Auto) 2.3 (1.4-5.7) K/uL Lymph # (Auto) 0.9 (0.6-2.4) K/uL [place] # (Auto) 0.1 (0.0-0.8) K/uL Eos # (Auto) 0.0 (0.0-0.7) K/uL Baso # (Auto) 0.0 (0.0-0.1) K/uL Nucleated RBC % 0.0 /100WBC Nucleated RBCs # 0 K/uL Lactate 1.1 (0.20-2.00) mmol/L Sodium 137 (136-145) mmol/L Potassium 3.5 (3.5-5.1) mmol/L Chloride 101 (98-107) mmol/L Carbon Dioxide 28.9 (21.0-32.0) mmol/L BUN 7 (7.0-18.0) mg/dL Creatinine 0.8 (0.6-1.0) mg/dL Est Cr Clr Drug Dosing 78.30 mL/min Estimated GFR (MDRD) > 60.0 ml/min Glucose 177 H (74-106) mg/dL Calcium 8.3 L (8.5-10.1) mg/dL Total Bilirubin 0.2 (0.2-1.0) mg/dL AST 62 H (15-37) IU/L ALT 73 H (14-63) IU/L Alkaline Phosphatase 104 (46-116) U/L Troponin I (0.000-0.056) ng/mL B-Natriuretic Peptide (<100) PG/ML Total Protein 6.9 (6.4-8.2) g/dL Albumin 3.1 L (3.4-5.0) g/dL Globulin 3.8 (2.6-4.0) g/dL Albumin/Globulin Ratio 0.8 L (0.9-1.6) 07/02/20 07/02/20 Range/Units 14:46 14:46 WBC (4.0-11.0) K/uL RBC (4.30-5.90) M/uL Hgb (12.0-16.0) g/dL Hct (36.0-46.0) % MCV (80.0-98.0) fL MCH (27.0-32.0) pg MCHC (31.0-37.0) g/dL RDW Std Deviation (28.0-62.0) fl RDW Coeff of Mei (11.0-15.0) % Plt Count (150-400) K/uL MPV (7.40-12.00) fL Neut % (Auto) (48.0-80.0) % Lymph % (Auto) (16.0-40.0) % [place] % (Auto) (0.0-15.0) % Eos % (Auto) (0.0-7.0) % Baso % (Auto) (0.0-1.5) % Neut # (Auto) (1.4-5.7) K/uL Lymph # (Auto) (0.6-2.4) K/uL [place] # (Auto) (0.0-0.8) K/uL Eos # (Auto) (0.0-0.7) K/uL Baso # (Auto) (0.0-0.1) K/uL Nucleated RBC % /100WBC Nucleated RBCs # K/uL Lactate (0.20-2.00) mmol/L Sodium (136-145) mmol/L Potassium (3.5-5.1) mmol/L Chloride (98-107) mmol/L Carbon Dioxide (21.0-32.0) mmol/L BUN (7.0-18.0) mg/dL Creatinine (0.6-1.0) mg/dL Est Cr Clr Drug Dosing mL/min Estimated GFR (MDRD) ml/min Glucose (74-106) mg/dL Calcium (8.5-10.1) mg/dL Total Bilirubin (0.2-1.0) mg/dL AST (15-37) IU/L ALT (14-63) IU/L Alkaline Phosphatase (46-116) U/L Troponin I < 0.050 (0.000-0.056) ng/mL B-Natriuretic Peptide 59 (<100) PG/ML Total Protein (6.4-8.2) g/dL Albumin (3.4-5.0) g/dL Globulin (2.6-4.0) g/dL Albumin/Globulin Ratio (0.9-1.6) Result Diagrams: 07/02/20 14:46 07/02/20 14:46 Sepsis Event Note - Evaluation Sepsis Screening Result: No Definite Risk - Focused Exam Vital Signs: Vital Signs Temp Pulse Resp BP Pulse Ox 07/02/20 15:52 93 L 07/02/20 15:14 83 129/57 L 91 L 07/02/20 14:14 93 131/79 88 L 07/02/20 13:43 89 130/77 95 07/02/20 13:11 96.3 F L 92 16 131/83 90 L Problem List Initiated/Reviewed/Updated: Yes Orders Last 24hrs: Active Orders 24 hr Category Date Time Status Patient Status [ADT] Routine ADT 07/02/20 15:53 Active EKG 12 Lead [EKG Documentation Completion] [RC] STAT Care 07/02/20 14:26 Active RT Post Treatment Assessment [RC] Click to Edit Care 07/02/20 13:32 Active RT Pre-Treatment Assessment [RC] Click to Edit Care 07/02/20 13:32 Active CORONAVIRUS COVID-19 KB [MOLEC] Stat Lab 07/02/20 14:40 Received CULTURE BLOOD [BC] Stat Lab 07/02/20 14:46 Received CULTURE BLOOD [BC] Stat Lab 07/02/20 15:00 Received Blood Culture x2 Reflex Set [OM.PC] Stat Oth 07/02/20 14:19 Ordered Assessment/Plan Comment:: Assessment/Plan: Acute hypoxic respiratory failure, COVID-19 infection: Remdesivir 200mg Day 1, 100mg Days 2-5 (5 doses total), Dexamethasone 6mg PO , Combivent INH for dyspnea, Oxygen support (provide oxygen via NC to maintain O2 sats above 90%). Lovenox 60mg BID, IV Fluid Bolus as needed. Monitor CBC, CMP Acute hypoxic respiratory failure secondary to bacterial infection: Will cover patient for bacterial infection due to sudden nature of hypoxia, WBC less than 4 and worsening chest x-ray. Blood cultures X 2 pending, Ceftriaxone 1gm Q24hr, Azithromycin 500mg Q24HR, IV Fluids as needed (patient has good PO intake), monitor AM CBC <Santiago Arriaga - Last Filed: 07/04/20 12:39> H&P History of Present Illness - General Admit Problem/Dx: Admission Diagnosis/Problem Admission Diagnosis/Problem Hypoxia - History of Present Illness Initial Comments - Free Text/Narative: I performed a history and physical exam of the patient and discussed management with resident. I have reviewed the residents note and agree with documented findings and plan unless otherwise specified in my note. Exam - Vital Signs Vital Signs: Last Vital Signs Temp 98 C H 07/04/20 11:13 Pulse 80 07/04/20 11:13 Resp 18 07/04/20 11:13 BP 155/94 H 07/04/20 11:13 Pulse Ox 92 L 07/04/20 11:13 - Patient Data Lab Results Last 24 hrs: Laboratory Results - last 24 hr 07/03/20 07/03/20 07/04/20 Range/Units 13:19 18:33 05:47 WBC 4.52 (4.0-11.0) K/uL RBC 4.27 L (4.30-5.90) M/uL Hgb 8.4 L (12.0-16.0) g/dL Hct 29.4 L (36.0-46.0) % MCV 68.9 L (80.0-98.0) fL MCH 19.7 L (27.0-32.0) pg MCHC 28.6 L (31.0-37.0) g/dL RDW Std Deviation 45.4 (28.0-62.0) fl RDW Coeff of Mei 18 H (11.0-15.0) % Plt Count 338 (150-400) K/uL MPV 9.40 (7.40-12.00) fL Neut % (Auto) 67.7 (48.0-80.0) % Lymph % (Auto) 25.7 (16.0-40.0) % [place] % (Auto) 6.6 (0.0-15.0) % Eos % (Auto) 0.0 (0.0-7.0) % Baso % (Auto) 0.0 (0.0-1.5) % Neut # (Auto) 3.1 (1.4-5.7) K/uL Lymph # (Auto) 1.2 (0.6-2.4) K/uL [place] # (Auto) 0.3 (0.0-0.8) K/uL Eos # (Auto) 0.0 (0.0-0.7) K/uL Baso # (Auto) 0.0 (0.0-0.1) K/uL Nucleated RBC % 0.0 /100WBC Nucleated RBCs # 0 K/uL Sodium (136-145) mmol/L Potassium (3.5-5.1) mmol/L Chloride (98-107) mmol/L Carbon Dioxide (21.0-32.0) mmol/L BUN (7.0-18.0) mg/dL Creatinine (0.6-1.0) mg/dL Est Cr Clr Drug Dosing mL/min Estimated GFR (MDRD) ml/min Glucose (74-106) mg/dL POC Glucose 241 H 278 H (60-110) mg/dL Calcium (8.5-10.1) mg/dL Total Bilirubin (0.2-1.0) mg/dL AST (15-37) IU/L ALT (14-63) IU/L Alkaline Phosphatase (46-116) U/L Total Protein (6.4-8.2) g/dL Albumin (3.4-5.0) g/dL Globulin (2.6-4.0) g/dL Albumin/Globulin Ratio (0.9-1.6) 07/04/20 07/04/20 Range/Units 05:47 06:46 WBC (4.0-11.0) K/uL RBC (4.30-5.90) M/uL Hgb (12.0-16.0) g/dL Hct (36.0-46.0) % MCV (80.0-98.0) fL MCH (27.0-32.0) pg MCHC (31.0-37.0) g/dL RDW Std Deviation (28.0-62.0) fl RDW Coeff of Mei (11.0-15.0) % Plt Count (150-400) K/uL MPV (7.40-12.00) fL Neut % (Auto) (48.0-80.0) % Lymph % (Auto) (16.0-40.0) % [place] % (Auto) (0.0-15.0) % Eos % (Auto) (0.0-7.0) % Baso % (Auto) (0.0-1.5) % Neut # (Auto) (1.4-5.7) K/uL Lymph # (Auto) (0.6-2.4) K/uL [place] # (Auto) (0.0-0.8) K/uL Eos # (Auto) (0.0-0.7) K/uL Baso # (Auto) (0.0-0.1) K/uL Nucleated RBC % /100WBC Nucleated RBCs # K/uL Sodium 139 (136-145) mmol/L Potassium 4.4 (3.5-5.1) mmol/L Chloride 103 (98-107) mmol/L Carbon Dioxide 24.3 (21.0-32.0) mmol/L BUN 16 (7.0-18.0) mg/dL Creatinine 0.8 (0.6-1.0) mg/dL Est Cr Clr Drug Dosing 78.30 mL/min Estimated GFR (MDRD) > 60.0 ml/min Glucose 280 H (74-106) mg/dL POC Glucose 268 H (60-110) mg/dL Calcium 8.7 (8.5-10.1) mg/dL Total Bilirubin 0.2 (0.2-1.0) mg/dL AST 42 H (15-37) IU/L ALT 80 H (14-63) IU/L Alkaline Phosphatase 96 (46-116) U/L Total Protein 6.6 (6.4-8.2) g/dL Albumin 3.1 L (3.4-5.0) g/dL Globulin 3.5 (2.6-4.0) g/dL Albumin/Globulin Ratio 0.9 (0.9-1.6) Result Diagrams: 07/04/20 05:47 07/04/20 05:47 [place] Results Last 24 hrs: Microbiology 07/02/20 15:00 Aerobic Blood Culture - Preliminary Blood - Venous - Lab Draw NO GROWTH AFTER 1 DAY Anaerobic Blood Culture - Preliminary NO GROWTH AFTER 1 DAY 07/02/20 14:46 Aerobic Blood Culture - Preliminary Blood - Venous NO GROWTH AFTER 1 DAY Anaerobic Blood Culture - Preliminary NO GROWTH AFTER 1 DAY Sepsis Event Note - Focused Exam Vital Signs: Vital Signs Temp Pulse Resp BP Pulse Ox 07/04/20 11:13 98 C H 80 18 155/94 H 92 L 07/04/20 08:25 36.5 C 69 18 140/93 H 93 L 07/04/20 04:00 36.6 C 77 16 129/70 92 L Orders Last 24hrs: Active Orders 24 hr Category Date Time Status IS (RT) [RT Incentive Spirometry] [RC] Q1HME Care 07/04/20 10:38 Active RT Post Treatment Assessment [RC] Click to Edit Care 07/04/20 10:38 Active RT Pre-Treatment Assessment [RC] Click to Edit Care 07/04/20 10:38 Active Albuterol/Ipratropium [Combivent Respimat] Med 07/04/20 10:00 Active 0 gm INH Q4H Remdesivir (Eua) [Remdesivir (EUA)] 100 mg Med 07/04/20 12:00 Active Sodium Chloride 0.9% [Normal Saline] 100 ml IV Q24H guaiFENesin [Robitussin] Med 07/03/20 15:40 Active 100 mg PO Q4H PRN Medication Orders Albuterol/Ipratropium (Combivent Respimat) 0 gm INH Q4H COUNTS INCLUDE 234 BEDS AT THE [facility] Last Admin: 07/04/20 11:02 Dose: 1 puff Documented by: MILE Dexamethasone (Dexamethasone) 6 mg PO DAILY COUNTS INCLUDE 234 BEDS AT THE [facility] Last Admin: 07/04/20 08:28 Dose: 6 mg Documented by: Admin: 07/03/20 08:43 Dose: 6 mg Documented by: GENEVIEVE Enoxaparin Sodium (Lovenox) 130 mg SUBCUT Q12H COUNTS INCLUDE 234 BEDS AT THE [facility] Last Admin: 07/04/20 06:50 Dose: 130 mg Documented by: Admin: 07/03/20 18:40 Dose: 130 mg Documented by: Admin: 07/03/20 08:41 Dose: 130 mg Documented by: Admin: 07/03/20 02:14 Dose: Not Given Documented by: MERRILL Ferrous Sulfate (Ferrous Sulfate) 325 mg PO DAILY COUNTS INCLUDE 234 BEDS AT THE [facility] Last Admin: 07/04/20 08:28 Dose: 325 mg Documented by: Admin: 07/03/20 08:43 Dose: 325 mg Documented by: GENEVIEVE Guaifenesin (Robitussin) 100 mg PO Q4H PRN PRN Reason: Cough Ceftriaxone Sodium 1 gm/ (Sodium Chloride) 50 mls @ 100 mls/hr IV Q24H COUNTS INCLUDE 234 BEDS AT THE [facility] Last Admin: 07/03/20 21:53 Dose: Not Given Documented by: Admin: 07/02/20 20:07 Dose: 100 mls/hr Documented by: MERRILL Azithromycin 500 mg/ Sodium (Chloride) 250 mls @ 250 mls/hr IV Q24H COUNTS INCLUDE 234 BEDS AT THE [facility] Last Admin: 07/03/20 18:46 Dose: 250 mls/hr Documented by: Infusion: 07/02/20 21:54 Dose: 250 mls/hr Documented by: Admin: 07/02/20 20:54 Dose: 250 mls/hr Documented by: MERRILL REMDESIVIR (EUA) 100 mg/ (Sodium Chloride) 100 mls @ 100 mls/hr IV Q24H COUNTS INCLUDE 234 BEDS AT THE [facility] Insulin Aspart (Novolog) 0 unit SUBCUT TIDAC COUNTS INCLUDE 234 BEDS AT THE [facility]; Protocol Last Admin: 07/04/20 06:54 Dose: 3 unit Documented by: Admin: 07/03/20 18:37 Dose: 3 unit Documented by: Admin: 07/03/20 13:38 Dose: 2 unit Documented by: GENEVIEVE Ondansetron HCl (Zofran) 4 mg IVPUSH Q4H PRN PRN Reason: Nausea Last Admin: 07/02/20 21:14 Dose: 4 mg Documented by: MERRILL
[2020-07-02] MEDS ORDERED: Ondansetron 4 MG/2 ML SDV IVPUSH PRN (17:00)
[2020-07-02] MEDS ORDERED: Enoxaparin 40 MG/0.4 ML Syringe SUBCUT SCH (17:00)
[2020-07-02] MEDS ORDERED: Acetaminophen 325 MG Tab PO PRN (17:00)
[2020-07-02] MEDS: cefTRIAXone 1 GM in Sodium Chloride 0.9% 50 ML IV SCH (20:07)
[2020-07-02] MEDS: Azithromycin 500 MG in Sodium Chloride 0.9% 250 ML IV SCH (20:54)
[2020-07-02] MEDS: Albuterol/Ipratropium 4 GM Inhalation Spray INH PRN (21:11)
[2020-07-03] MEDS: Enoxaparin 150 MG/1 ML Syringe SUBCUT SCH ×3 (02:14→18:40)
[2020-07-03] MEDS: Albuterol/Ipratropium 4 GM Inhalation Spray INH PRN ×3 (04:38→20:36)
[2020-07-03 06:24] LABS: BLOOD UREA NITROGEN,BUN 9 mg/dL (7.0-18.0); CARBON DIOXIDE,CO2 27.9 mmol/L (21.0-32.0); CHLORIDE,CL 102 mmol/L (98-107); GLUCOSE RANDOM 237 mg/dL (74-106); SODIUM,NA 139 mmol/L (136-145)
[2020-07-03] MEDS: Ferrous Sulfate 325 MG Tab PO SCH (08:43)
[2020-07-03] MEDS: Dexamethasone 4 MG Tab PO SCH (08:43)
[2020-07-03] MEDS: Insulin Aspart 100 Units/ML 3 ML Pen SUBCUT SCH ×2 (13:38→18:37)
[2020-07-03] MEDS ORDERED: guaiFENesin 100 MG/5 ML Soln 5 ML UD Cup PO PRN (15:40)
--- NOTE | 2020-07-03 16:30 | PCM.PN ---
<Luca Avilez - Last Filed: 07/03/20 16:22> - General Info Date of Service: 07/03/20 Subjective Update: Patient states that she still has SOB and chest tightness. Nausea and diarrhea have resolved. Denies fever or chills. - Review of Systems General: Denies: Fever, Chills HEENT: Denies: Dysphasia, Headaches Pulmonary: Reports: Shortness of Breath, Cough. Denies: Pleuritic Chest Pain Cardiovascular: Reports: Chest Pain Gastrointestinal: Denies: Abdominal Pain, Decreased Appetite, Diarrhea Musculoskeletal: Denies: Back Pain Neurological: Denies: Confusion, Dizziness, Headache, Numbness - Patient Data Vitals - Most Recent: Last Vital Signs Temp 98 F 07/03/20 15:06 Pulse 79 07/03/20 15:06 Resp 18 07/03/20 15:06 BP 147/90 H 07/03/20 15:06 Pulse Ox 92 L 07/03/20 15:06 Weight - Most Recent: 131.542 kg I&O - Last 24 Hours: Intake & Output 07/03/20 07/03/20 07/03/20 06:59 14:59 22:59 Intake Total 1830 1280 Output Total 1600 600 Balance 230 680 Lab Results Last 24 Hours: Laboratory Results - last 24 hr 07/02/20 07/03/20 07/03/20 Range/Units 14:40 05:37 05:37 WBC 2.19 L (4.0-11.0) K/uL RBC 4.15 L (4.30-5.90) M/uL Hgb 8.2 L (12.0-16.0) g/dL Hct 28.1 L (36.0-46.0) % MCV 67.7 L (80.0-98.0) fL MCH 19.8 L (27.0-32.0) pg MCHC 29.2 L (31.0-37.0) g/dL RDW Std Deviation 44.3 (28.0-62.0) fl RDW Coeff of Mei 18 H (11.0-15.0) % Plt Count 280 (150-400) K/uL MPV 9.70 (7.40-12.00) fL Neut % (Auto) 63.0 (48.0-80.0) % Lymph % (Auto) 31.5 (16.0-40.0) % [place] % (Auto) 5.5 (0.0-15.0) % Eos % (Auto) 0.0 (0.0-7.0) % Baso % (Auto) 0.0 (0.0-1.5) % Neut # (Auto) 1.4 (1.4-5.7) K/uL Lymph # (Auto) 0.7 (0.6-2.4) K/uL [place] # (Auto) 0.1 (0.0-0.8) K/uL Eos # (Auto) 0.0 (0.0-0.7) K/uL Baso # (Auto) 0.0 (0.0-0.1) K/uL Nucleated RBC % 0.0 /100WBC Nucleated RBCs # 0 K/uL Sodium 139 (136-145) mmol/L Potassium 4.0 (3.5-5.1) mmol/L Chloride 102 (98-107) mmol/L Carbon Dioxide 27.9 (21.0-32.0) mmol/L BUN 9 (7.0-18.0) mg/dL Creatinine 0.8 (0.6-1.0) mg/dL Est Cr Clr Drug Dosing 78.30 mL/min Estimated GFR (MDRD) > 60.0 ml/min Glucose 237 H (74-106) mg/dL POC Glucose (60-110) mg/dL Calcium 8.4 L (8.5-10.1) mg/dL Total Bilirubin 0.2 (0.2-1.0) mg/dL AST 44 H (15-37) IU/L ALT 66 H (14-63) IU/L Alkaline Phosphatase 95 (46-116) U/L Total Protein 6.7 (6.4-8.2) g/dL Albumin 2.8 L (3.4-5.0) g/dL Globulin 3.9 (2.6-4.0) g/dL Albumin/Globulin Ratio 0.7 L (0.9-1.6) SARS Virus RNA (PCR) POSITIVE H (NEGATIVE) 07/03/20 Range/Units 13:19 WBC (4.0-11.0) K/uL RBC (4.30-5.90) M/uL Hgb (12.0-16.0) g/dL Hct (36.0-46.0) % MCV (80.0-98.0) fL MCH (27.0-32.0) pg MCHC (31.0-37.0) g/dL RDW Std Deviation (28.0-62.0) fl RDW Coeff of Mei (11.0-15.0) % Plt Count (150-400) K/uL MPV (7.40-12.00) fL Neut % (Auto) (48.0-80.0) % Lymph % (Auto) (16.0-40.0) % [place] % (Auto) (0.0-15.0) % Eos % (Auto) (0.0-7.0) % Baso % (Auto) (0.0-1.5) % Neut # (Auto) (1.4-5.7) K/uL Lymph # (Auto) (0.6-2.4) K/uL [place] # (Auto) (0.0-0.8) K/uL Eos # (Auto) (0.0-0.7) K/uL Baso # (Auto) (0.0-0.1) K/uL Nucleated RBC % /100WBC Nucleated RBCs # K/uL Sodium (136-145) mmol/L Potassium (3.5-5.1) mmol/L Chloride (98-107) mmol/L Carbon Dioxide (21.0-32.0) mmol/L BUN (7.0-18.0) mg/dL Creatinine (0.6-1.0) mg/dL Est Cr Clr Drug Dosing mL/min Estimated GFR (MDRD) ml/min Glucose (74-106) mg/dL POC Glucose 241 H (60-110) mg/dL Calcium (8.5-10.1) mg/dL Total Bilirubin (0.2-1.0) mg/dL AST (15-37) IU/L ALT (14-63) IU/L Alkaline Phosphatase (46-116) U/L Total Protein (6.4-8.2) g/dL Albumin (3.4-5.0) g/dL Globulin (2.6-4.0) g/dL Albumin/Globulin Ratio (0.9-1.6) SARS Virus RNA (PCR) (NEGATIVE) [place] Results Last 24 Hours: Microbiology 07/02/20 15:00 Aerobic Blood Culture - Preliminary Blood - Venous - Lab Draw NO GROWTH AFTER 1 DAY Anaerobic Blood Culture - Preliminary NO GROWTH AFTER 1 DAY 07/02/20 14:46 Aerobic Blood Culture - Preliminary Blood - Venous NO GROWTH AFTER 1 DAY Anaerobic Blood Culture - Preliminary NO GROWTH AFTER 1 DAY Med Orders - Current: Current Medications Albuterol/Ipratropium (Combivent Respimat) 0 gm INH Q4H PRN PRN Reason: Dyspnea Last Admin: 07/03/20 15:08 Dose: 1 puff Documented by: Dexamethasone (Dexamethasone) 6 mg PO DAILY [facility] Last Admin: 07/03/20 08:43 Dose: 6 mg Documented by: Enoxaparin Sodium (Lovenox) 130 mg SUBCUT Q12H [facility] Last Admin: 07/03/20 08:41 Dose: 130 mg Documented by: Ferrous Sulfate (Ferrous Sulfate) 325 mg PO DAILY [facility] Last Admin: 07/03/20 08:43 Dose: 325 mg Documented by: Guaifenesin (Robitussin) 100 mg PO Q4H PRN PRN Reason: Cough Ceftriaxone Sodium 1 gm/ (Sodium Chloride) 50 mls @ 100 mls/hr IV Q24H [facility] Last Admin: 07/02/20 20:07 Dose: 100 mls/hr Documented by: Azithromycin 500 mg/ Sodium (Chloride) 250 mls @ 250 mls/hr IV Q24H [facility] Last Admin: 07/02/20 20:54 Dose: 250 mls/hr Documented by: Insulin Aspart (Novolog) 0 unit SUBCUT TIDAC [facility]; Protocol Last Admin: 07/03/20 13:38 Dose: 2 unit Documented by: Ondansetron HCl (Zofran) 4 mg IVPUSH Q4H PRN PRN Reason: Nausea Last Admin: 07/02/20 21:14 Dose: 4 mg Documented by: Discontinued Medications Acetaminophen (Tylenol) 650 mg PO Q4H PRN PRN Reason: Pain (Mild 1-3)/fever Albuterol (Ventolin Hfa) 4 gm INH ONETIME ONE Stop: 07/02/20 13:32 Last Admin: 07/02/20 13:52 Dose: Not Given Documented by: Albuterol (Ventolin Hfa) 4 gm INH ONETIME ONE Stop: 07/02/20 13:46 Last Admin: 07/02/20 13:51 Dose: 2 puff Documented by: Dexamethasone (Dexamethasone) 8 mg PO ONETIME ONE Stop: 07/02/20 13:35 Last Admin: 07/02/20 14:02 Dose: 8 mg Documented by: Enoxaparin Sodium (Lovenox) 40 mg SUBCUT Q24H [facility] Last Admin: 07/02/20 18:39 Dose: 40 mg Documented by: Piperacillin Sod/Tazobactam (Sod 3.375 gm/ Sodium Chloride) 50 mls @ 100 mls/hr IV ONETIME ONE Stop: 07/02/20 14:58 Last Admin: 07/02/20 15:06 Dose: 100 mls/hr Documented by: Vancomycin HCl 1.5 gm/ Sodium (Chloride) 500 mls @ 333 mls/hr IV ONETIME ONE Stop: 07/02/20 16:00 Last Admin: 07/02/20 15:18 Dose: Not Given Documented by: Vancomycin HCl 1.5 gm/ Premix 300 mls @ 300 mls/hr IV ONETIME ONE Stop: 07/02/20 15:02 Last Admin: 07/02/20 15:11 Dose: 300 mls/hr Documented by: Vancomycin HCl 1.5 gm/ Premix 300 mls @ 300 mls/hr IV ONETIME ONE Stop: 07/02/20 15:18 Last Admin: 07/02/20 17:48 Dose: Not Given Documented by: REMDESIVIR (EUA) 200 mg/ (Sodium Chloride) 250 mls @ 250 mls/hr IV ONETIME ONE Stop: 07/02/20 19:33 Last Admin: 07/02/20 22:05 Dose: 250 mls/hr Documented by: Insulin Aspart (Novolog) 0 unit SUBCUT TIDAC [facility]; Protocol - Exam General: Alert, Oriented, Cooperative HEENT: EOMI Lungs: Clear to Auscultation, Normal Respiratory Effort. No: Wheezing Cardiovascular: Regular Rate, Regular Rhythm GI/Abdominal Exam: Soft, Non-Tender, No Distention Back Exam: Normal Inspection Extremities: Normal Range of Motion Skin: Warm, Dry Psy/Mental Status: Alert, Normal Affect Sepsis Event Note - Evaluation Sepsis Screening Result: No Definite Risk - Focused Exam Vital Signs: Vital Signs Temp Pulse Resp BP Pulse Ox 07/03/20 15:06 98 F 79 18 147/90 H 92 L 07/03/20 12:00 98.5 F 77 18 130/86 90 L 07/03/20 08:00 98.7 F 72 18 120/65 90 L 07/03/20 04:34 98.6 F 72 141/80 H 92 L - Problem List Review Problem List Initiated/Reviewed/Updated: Yes - My Orders Last 24 Hours: My Active Orders 07/02/20 Dinner Regular Diet [DIET] 07/02/20 16:59 Patient Status [ADT] Routine Oxygen Therapy [RC] PRN VTE/DVT Education [RC] PER UNIT ROUTINE Vital Signs [RC] Q4H Resuscitation Status Routine 07/02/20 17:00 Ondansetron [Zofran] 4 mg IVPUSH Q4H PRN 07/02/20 17:01 Oxygen Therapy [RC] PRN VTE/DVT Education [RC] PER UNIT ROUTINE Vital Signs [RC] Q4H 07/02/20 17:08 Albuterol/Ipratropium [Combivent Respimat] 0 gm INH Q4H PRN 07/02/20 17:09 RT Post Treatment Assessment [RC] Click to Edit RT Pre-Treatment Assessment [RC] Click to Edit 07/02/20 19:30 Enoxaparin [Lovenox] 130 mg SUBCUT Q12H 07/02/20 19:45 Azithromycin [Zithromax] 500 mg Sodium Chloride 0.9% [Normal Saline (AdvBag)] 250 ml IV Q24H cefTRIAXone [Rocephin] 1 gm Sodium Chloride 0.9% [Normal Saline] 50 ml IV Q24H 07/03/20 09:00 Ferrous Sulfate 325 mg PO DAILY dexAMETHasone 6 mg PO DAILY 07/03/20 15:40 guaiFENesin [Robitussin] 100 mg PO Q4H PRN 07/04/20 05:11 CBC WITH AUTO DIFF [HEME] AM CMP [COMPREHENSIVE METABOLIC PN,CMP] [CHEM] AM - Plan Plan:: Assessment/Plan: Acute hypoxic respiratory failure, COVID-19 infection: Remdesivir 200mg Day 1, 100mg Days 2-5 (5 doses total), Dexamethasone 6mg PO , Combivent INH for dyspnea, Oxygen support (provide oxygen via NC to maintain O2 sats above 90%). Lovenox 60mg BID, IV Fluid Bolus as needed. Monitor CBC, CMP. Prone positioning Acute hypoxic respiratory failure secondary to bacterial infection: Will cover patient for bacterial infection due to sudden nature of hypoxia, WBC less than 4 and worsening chest x-ray. Blood cultures X 2 pending, Ceftriaxone 1gm Q24hr, Azithromycin 500mg Q24HR, IV Fluids as needed (patient has good PO intake), monitor AM CBC Hyperglycemia: Patients blood glucose levels have been 241. Start patient on low dose insulin sliding scale. <Santiago Arriaga - Last Filed: 07/04/20 12:57> - Patient Data Vitals - Most Recent: Last Vital Signs Temp 98 C H 07/04/20 11:13 Pulse 80 07/04/20 11:13 Resp 18 07/04/20 11:13 BP 155/94 H 07/04/20 11:13 Pulse Ox 92 L 07/04/20 11:13 I&O - Last 24 Hours: Intake & Output 07/03/20 07/04/20 07/04/20 22:59 06:59 14:59 Intake Total 1280 600 Output Total 600 1500 Balance 680 -900 Lab Results Last 24 Hours: Laboratory Results - last 24 hr 07/03/20 07/03/20 07/04/20 Range/Units 13:19 18:33 05:47 WBC 4.52 (4.0-11.0) K/uL RBC 4.27 L (4.30-5.90) M/uL Hgb 8.4 L (12.0-16.0) g/dL Hct 29.4 L (36.0-46.0) % MCV 68.9 L (80.0-98.0) fL MCH 19.7 L (27.0-32.0) pg MCHC 28.6 L (31.0-37.0) g/dL RDW Std Deviation 45.4 (28.0-62.0) fl RDW Coeff of Mei 18 H (11.0-15.0) % Plt Count 338 (150-400) K/uL MPV 9.40 (7.40-12.00) fL Neut % (Auto) 67.7 (48.0-80.0) % Lymph % (Auto) 25.7 (16.0-40.0) % [place] % (Auto) 6.6 (0.0-15.0) % Eos % (Auto) 0.0 (0.0-7.0) % Baso % (Auto) 0.0 (0.0-1.5) % Neut # (Auto) 3.1 (1.4-5.7) K/uL Lymph # (Auto) 1.2 (0.6-2.4) K/uL [place] # (Auto) 0.3 (0.0-0.8) K/uL Eos # (Auto) 0.0 (0.0-0.7) K/uL Baso # (Auto) 0.0 (0.0-0.1) K/uL Nucleated RBC % 0.0 /100WBC Nucleated RBCs # 0 K/uL Sodium (136-145) mmol/L Potassium (3.5-5.1) mmol/L Chloride (98-107) mmol/L Carbon Dioxide (21.0-32.0) mmol/L BUN (7.0-18.0) mg/dL Creatinine (0.6-1.0) mg/dL Est Cr Clr Drug Dosing mL/min Estimated GFR (MDRD) ml/min Glucose (74-106) mg/dL POC Glucose 241 H 278 H (60-110) mg/dL Calcium (8.5-10.1) mg/dL Total Bilirubin (0.2-1.0) mg/dL AST (15-37) IU/L ALT (14-63) IU/L Alkaline Phosphatase (46-116) U/L Total Protein (6.4-8.2) g/dL Albumin (3.4-5.0) g/dL Globulin (2.6-4.0) g/dL Albumin/Globulin Ratio (0.9-1.6) 07/04/20 07/04/20 Range/Units 05:47 06:46 WBC (4.0-11.0) K/uL RBC (4.30-5.90) M/uL Hgb (12.0-16.0) g/dL Hct (36.0-46.0) % MCV (80.0-98.0) fL MCH (27.0-32.0) pg MCHC (31.0-37.0) g/dL RDW Std Deviation (28.0-62.0) fl RDW Coeff of Mei (11.0-15.0) % Plt Count (150-400) K/uL MPV (7.40-12.00) fL Neut % (Auto) (48.0-80.0) % Lymph % (Auto) (16.0-40.0) % [place] % (Auto) (0.0-15.0) % Eos % (Auto) (0.0-7.0) % Baso % (Auto) (0.0-1.5) % Neut # (Auto) (1.4-5.7) K/uL Lymph # (Auto) (0.6-2.4) K/uL [place] # (Auto) (0.0-0.8) K/uL Eos # (Auto) (0.0-0.7) K/uL Baso # (Auto) (0.0-0.1) K/uL Nucleated RBC % /100WBC Nucleated RBCs # K/uL Sodium 139 (136-145) mmol/L Potassium 4.4 (3.5-5.1) mmol/L Chloride 103 (98-107) mmol/L Carbon Dioxide 24.3 (21.0-32.0) mmol/L BUN 16 (7.0-18.0) mg/dL Creatinine 0.8 (0.6-1.0) mg/dL Est Cr Clr Drug Dosing 78.30 mL/min Estimated GFR (MDRD) > 60.0 ml/min Glucose 280 H (74-106) mg/dL POC Glucose 268 H (60-110) mg/dL Calcium 8.7 (8.5-10.1) mg/dL Total Bilirubin 0.2 (0.2-1.0) mg/dL AST 42 H (15-37) IU/L ALT 80 H (14-63) IU/L Alkaline Phosphatase 96 (46-116) U/L Total Protein 6.6 (6.4-8.2) g/dL Albumin 3.1 L (3.4-5.0) g/dL Globulin 3.5 (2.6-4.0) g/dL Albumin/Globulin Ratio 0.9 (0.9-1.6) [place] Results Last 24 Hours: Microbiology 07/02/20 15:00 Aerobic Blood Culture - Preliminary Blood - Venous - Lab Draw NO GROWTH AFTER 1 DAY Anaerobic Blood Culture - Preliminary NO GROWTH AFTER 1 DAY 07/02/20 14:46 Aerobic Blood Culture - Preliminary Blood - Venous NO GROWTH AFTER 1 DAY Anaerobic Blood Culture - Preliminary NO GROWTH AFTER 1 DAY Med Orders - Current: Current Medications Albuterol/Ipratropium (Combivent Respimat) 0 gm INH Q4H [facility] Last Admin: 07/04/20 11:02 Dose: 1 puff Documented by: Dexamethasone (Dexamethasone) 6 mg PO DAILY [facility] Last Admin: 07/04/20 08:28 Dose: 6 mg Documented by: Enoxaparin Sodium (Lovenox) 130 mg SUBCUT Q12H [facility] Last Admin: 07/04/20 06:50 Dose: 130 mg Documented by: Ferrous Sulfate (Ferrous Sulfate) 325 mg PO DAILY [facility] Last Admin: 07/04/20 08:28 Dose: 325 mg Documented by: Guaifenesin (Robitussin) 100 mg PO Q4H PRN PRN Reason: Cough Ceftriaxone Sodium 1 gm/ (Sodium Chloride) 50 mls @ 100 mls/hr IV Q24H [facility] Last Admin: 07/03/20 21:53 Dose: Not Given Documented by: Azithromycin 500 mg/ Sodium (Chloride) 250 mls @ 250 mls/hr IV Q24H [facility] Last Admin: 07/03/20 18:46 Dose: 250 mls/hr Documented by: REMDESIVIR (EUA) 100 mg/ (Sodium Chloride) 100 mls @ 100 mls/hr IV Q24H [facility] Insulin Aspart (Novolog) 0 unit SUBCUT TIDAC [facility]; Protocol Last Admin: 07/04/20 06:54 Dose: 3 unit Documented by: Ondansetron HCl (Zofran) 4 mg IVPUSH Q4H PRN PRN Reason: Nausea Last Admin: 07/02/20 21:14 Dose: 4 mg Documented by: Discontinued Medications Acetaminophen (Tylenol) 650 mg PO Q4H PRN PRN Reason: Pain (Mild 1-3)/fever Albuterol (Ventolin Hfa) 4 gm INH ONETIME ONE Stop: 07/02/20 13:32 Last Admin: 07/02/20 13:52 Dose: Not Given Documented by: Albuterol (Ventolin Hfa) 4 gm INH ONETIME ONE Stop: 07/02/20 13:46 Last Admin: 07/02/20 13:51 Dose: 2 puff Documented by: Albuterol/Ipratropium (Combivent Respimat) 0 gm INH Q4H PRN PRN Reason: Dyspnea Last Admin: 07/03/20 20:36 Dose: 1 puff Documented by: Albuterol/Ipratropium (Combivent Respimat) 0 gm INH Q4H [facility] Last Admin: 07/04/20 11:16 Dose: Not Given Documented by: Dexamethasone (Dexamethasone) 8 mg PO ONETIME ONE Stop: 07/02/20 13:35 Last Admin: 07/02/20 14:02 Dose: 8 mg Documented by: Enoxaparin Sodium (Lovenox) 40 mg SUBCUT Q24H [facility] Last Admin: 07/02/20 18:39 Dose: 40 mg Documented by: Piperacillin Sod/Tazobactam (Sod 3.375 gm/ Sodium Chloride) 50 mls @ 100 mls/hr IV ONETIME ONE Stop: 07/02/20 14:58 Last Admin: 07/02/20 15:06 Dose: 100 mls/hr Documented by: Vancomycin HCl 1.5 gm/ Sodium (Chloride) 500 mls @ 333 mls/hr IV ONETIME ONE Stop: 07/02/20 16:00 Last Admin: 07/02/20 15:18 Dose: Not Given Documented by: Vancomycin HCl 1.5 gm/ Premix 300 mls @ 300 mls/hr IV ONETIME ONE Stop: 07/02/20 15:02 Last Admin: 07/02/20 15:11 Dose: 300 mls/hr Documented by: Vancomycin HCl 1.5 gm/ Premix 300 mls @ 300 mls/hr IV ONETIME ONE Stop: 07/02/20 15:18 Last Admin: 07/02/20 17:48 Dose: Not Given Documented by: REMDESIVIR (EUA) 200 mg/ (Sodium Chloride) 250 mls @ 250 mls/hr IV ONETIME ONE Stop: 07/02/20 19:33 Last Admin: 07/02/20 22:05 Dose: 250 mls/hr Documented by: Ceftriaxone Sodium/Dextrose (Rocephin In Dextrose,Iso-Osm 1 Gm/50 Ml) Confirm Administered Dose 50 mls @ as directed .ROUTE .STK-MED ONE Stop: 07/03/20 19:59 Last Admin: 07/03/20 20:17 Dose: 100 mls/hr Documented by: Insulin Aspart (Novolog) 0 unit SUBCUT TIDAC [facility]; Protocol Sepsis Event Note - Focused Exam Vital Signs: Vital Signs Temp Pulse Resp BP Pulse Ox 07/04/20 11:13 98 C H 80 18 155/94 H 92 L 07/04/20 08:25 36.5 C 69 18 140/93 H 93 L 07/04/20 04:00 36.6 C 77 16 129/70 92 L - Plan Plan:: I have seen and evaluated the patient and agree with the residents note unless specified in my note
[2020-07-03] MEDS ORDERED: Insulin Aspart 100 Units/ML 3 ML Pen SUBCUT SCH (17:00)
[2020-07-03] MEDS: Azithromycin 500 MG in Sodium Chloride 0.9% 250 ML IV SCH (18:46)
[2020-07-03] MEDS: cefTRIAXone 1 GM in Sodium Chloride 0.9% 50 ML IV SCH (21:53)
[2020-07-04 06:28] LABS: BLOOD UREA NITROGEN,BUN 16 mg/dL (7.0-18.0); CARBON DIOXIDE,CO2 24.3 mmol/L (21.0-32.0); CHLORIDE,CL 103 mmol/L (98-107); GLUCOSE RANDOM 280 mg/dL (74-106); POTASSIUM,K 4.4 mmol/L (3.5-5.1); SODIUM,NA 139 mmol/L (136-145)
[2020-07-04] MEDS: Enoxaparin 150 MG/1 ML Syringe SUBCUT SCH ×2 (06:50→18:50)
[2020-07-04] MEDS: Insulin Aspart 100 Units/ML 3 ML Pen SUBCUT SCH ×3 (06:54→17:14)
[2020-07-04] MEDS: Dexamethasone 4 MG Tab PO SCH (08:28)
[2020-07-04] MEDS: Ferrous Sulfate 325 MG Tab PO SCH (08:28)
[2020-07-04] MEDS ORDERED: Albuterol/Ipratropium 4 GM Inhalation Spray INH SCH (10:45)
[2020-07-04] MEDS: Albuterol/Ipratropium 4 GM Inhalation Spray INH SCH ×4 (11:02→21:28)
[2020-07-04] MEDS: REMDESIVIR (EUA) 100 MG in Sodium Chloride 0.9% 100 ML IV SCH (13:02)
[2020-07-04] MEDS ORDERED: Acetaminophen 325 MG Tab PO PRN (15:49)
--- NOTE | 2020-07-04 17:38 | PCM.PN ---
- General Info Date of Service: 07/04/20 Subjective Update: Patient states that it is easier for her to breath today while resting. Still states SOB on exertion and slight cough. Denies fever, chills, nausea, diarrhea. Patient states good appetite. - Review of Systems General: Denies: Fever, Weakness, Chills HEENT: Denies: Sore Throat, Visual Changes Pulmonary: Reports: Shortness of Breath, Cough (mild). Denies: Pleuritic Chest Pain Cardiovascular: Reports: Dyspnea on Exertion. Denies: Chest Pain, Palpitations Gastrointestinal: Denies: Abdominal Pain, Decreased Appetite, Diarrhea Musculoskeletal: Denies: Shoulder Pain, Back Pain Neurological: Denies: Confusion, Dizziness - Patient Data Vitals - Most Recent: Last Vital Signs Temp 98.2 F 07/04/20 16:05 Pulse 81 07/04/20 16:05 Resp 18 07/04/20 17:17 BP 140/78 07/04/20 16:05 Pulse Ox 93 L 07/04/20 17:17 Weight - Most Recent: 290 lb I&O - Last 24 Hours: Intake & Output 07/04/20 07/04/20 07/04/20 06:59 14:59 22:59 Intake Total 600 1100 Output Total 1500 1800 Balance -900 -700 Lab Results Last 24 Hours: Laboratory Results - last 24 hr 07/03/20 07/04/20 07/04/20 Range/Units 18:33 05:47 05:47 WBC 4.52 (4.0-11.0) K/uL RBC 4.27 L (4.30-5.90) M/uL Hgb 8.4 L (12.0-16.0) g/dL Hct 29.4 L (36.0-46.0) % MCV 68.9 L (80.0-98.0) fL MCH 19.7 L (27.0-32.0) pg MCHC 28.6 L (31.0-37.0) g/dL RDW Std Deviation 45.4 (28.0-62.0) fl RDW Coeff of Mei 18 H (11.0-15.0) % Plt Count 338 (150-400) K/uL MPV 9.40 (7.40-12.00) fL Neut % (Auto) 67.7 (48.0-80.0) % Lymph % (Auto) 25.7 (16.0-40.0) % [place] % (Auto) 6.6 (0.0-15.0) % Eos % (Auto) 0.0 (0.0-7.0) % Baso % (Auto) 0.0 (0.0-1.5) % Neut # (Auto) 3.1 (1.4-5.7) K/uL Lymph # (Auto) 1.2 (0.6-2.4) K/uL [place] # (Auto) 0.3 (0.0-0.8) K/uL Eos # (Auto) 0.0 (0.0-0.7) K/uL Baso # (Auto) 0.0 (0.0-0.1) K/uL Nucleated RBC % 0.0 /100WBC Nucleated RBCs # 0 K/uL Sodium 139 (136-145) mmol/L Potassium 4.4 (3.5-5.1) mmol/L Chloride 103 (98-107) mmol/L Carbon Dioxide 24.3 (21.0-32.0) mmol/L BUN 16 (7.0-18.0) mg/dL Creatinine 0.8 (0.6-1.0) mg/dL Est Cr Clr Drug Dosing 78.30 mL/min Estimated GFR (MDRD) > 60.0 ml/min Glucose 280 H (74-106) mg/dL POC Glucose 278 H (60-110) mg/dL Calcium 8.7 (8.5-10.1) mg/dL Total Bilirubin 0.2 (0.2-1.0) mg/dL AST 42 H (15-37) IU/L ALT 80 H (14-63) IU/L Alkaline Phosphatase 96 (46-116) U/L Total Protein 6.6 (6.4-8.2) g/dL Albumin 3.1 L (3.4-5.0) g/dL Globulin 3.5 (2.6-4.0) g/dL Albumin/Globulin Ratio 0.9 (0.9-1.6) 07/04/20 07/04/20 07/04/20 Range/Units 06:46 12:56 17:12 WBC (4.0-11.0) K/uL RBC (4.30-5.90) M/uL Hgb (12.0-16.0) g/dL Hct (36.0-46.0) % MCV (80.0-98.0) fL MCH (27.0-32.0) pg MCHC (31.0-37.0) g/dL RDW Std Deviation (28.0-62.0) fl RDW Coeff of Mei (11.0-15.0) % Plt Count (150-400) K/uL MPV (7.40-12.00) fL Neut % (Auto) (48.0-80.0) % Lymph % (Auto) (16.0-40.0) % [place] % (Auto) (0.0-15.0) % Eos % (Auto) (0.0-7.0) % Baso % (Auto) (0.0-1.5) % Neut # (Auto) (1.4-5.7) K/uL Lymph # (Auto) (0.6-2.4) K/uL [place] # (Auto) (0.0-0.8) K/uL Eos # (Auto) (0.0-0.7) K/uL Baso # (Auto) (0.0-0.1) K/uL Nucleated RBC % /100WBC Nucleated RBCs # K/uL Sodium (136-145) mmol/L Potassium (3.5-5.1) mmol/L Chloride (98-107) mmol/L Carbon Dioxide (21.0-32.0) mmol/L BUN (7.0-18.0) mg/dL Creatinine (0.6-1.0) mg/dL Est Cr Clr Drug Dosing mL/min Estimated GFR (MDRD) ml/min Glucose (74-106) mg/dL POC Glucose 268 H 273 H 322 H (60-110) mg/dL Calcium (8.5-10.1) mg/dL Total Bilirubin (0.2-1.0) mg/dL AST (15-37) IU/L ALT (14-63) IU/L Alkaline Phosphatase (46-116) U/L Total Protein (6.4-8.2) g/dL Albumin (3.4-5.0) g/dL Globulin (2.6-4.0) g/dL Albumin/Globulin Ratio (0.9-1.6) Ayden Results Last 24 Hours: Microbiology 07/02/20 15:00 Aerobic Blood Culture - Preliminary Blood - Venous - Lab Draw NO GROWTH AFTER 2 DAYS Anaerobic Blood Culture - Preliminary NO GROWTH AFTER 2 DAYS 07/02/20 14:46 Aerobic Blood Culture - Preliminary Blood - Venous NO GROWTH AFTER 2 DAYS Anaerobic Blood Culture - Preliminary NO GROWTH AFTER 2 DAYS Med Orders - Current: Current Medications Acetaminophen (Tylenol) 650 mg PO Q4H PRN PRN Reason: Pain Last Admin: 07/04/20 16:04 Dose: 650 mg Documented by: Albuterol/Ipratropium (Combivent Respimat) 0 gm INH Q4H [facility] Last Admin: 07/04/20 14:28 Dose: 1 puff Documented by: Dexamethasone (Dexamethasone) 6 mg PO DAILY [facility] Last Admin: 07/04/20 08:28 Dose: 6 mg Documented by: Enoxaparin Sodium (Lovenox) 130 mg SUBCUT Q12H [facility] Last Admin: 07/04/20 06:50 Dose: 130 mg Documented by: Ferrous Sulfate (Ferrous Sulfate) 325 mg PO DAILY [facility] Last Admin: 07/04/20 08:28 Dose: 325 mg Documented by: Guaifenesin (Robitussin) 100 mg PO Q4H PRN PRN Reason: Cough Ceftriaxone Sodium 1 gm/ (Sodium Chloride) 50 mls @ 100 mls/hr IV Q24H [facility] Last Admin: 07/03/20 21:53 Dose: Not Given Documented by: Azithromycin 500 mg/ Sodium (Chloride) 250 mls @ 250 mls/hr IV Q24H [facility] Last Admin: 07/03/20 18:46 Dose: 250 mls/hr Documented by: REMDESIVIR (EUA) 100 mg/ (Sodium Chloride) 100 mls @ 100 mls/hr IV Q24H [facility] Last Admin: 07/04/20 13:02 Dose: 100 mls/hr Documented by: Insulin Aspart (Novolog) 0 unit SUBCUT TIDAC [facility]; Protocol Last Admin: 07/04/20 17:14 Dose: 8 unit Documented by: Ondansetron HCl (Zofran) 4 mg IVPUSH Q4H PRN PRN Reason: Nausea Last Admin: 07/02/20 21:14 Dose: 4 mg Documented by: Discontinued Medications Acetaminophen (Tylenol) 650 mg PO Q4H PRN PRN Reason: Pain (Mild 1-3)/fever Albuterol (Ventolin Hfa) 4 gm INH ONETIME ONE Stop: 07/02/20 13:32 Last Admin: 07/02/20 13:52 Dose: Not Given Documented by: Albuterol (Ventolin Hfa) 4 gm INH ONETIME ONE Stop: 07/02/20 13:46 Last Admin: 07/02/20 13:51 Dose: 2 puff Documented by: Albuterol/Ipratropium (Combivent Respimat) 0 gm INH Q4H PRN PRN Reason: Dyspnea Last Admin: 07/03/20 20:36 Dose: 1 puff Documented by: Albuterol/Ipratropium (Combivent Respimat) 0 gm INH Q4H [facility] Last Admin: 07/04/20 11:16 Dose: Not Given Documented by: Dexamethasone (Dexamethasone) 8 mg PO ONETIME ONE Stop: 07/02/20 13:35 Last Admin: 07/02/20 14:02 Dose: 8 mg Documented by: Enoxaparin Sodium (Lovenox) 40 mg SUBCUT Q24H [facility] Last Admin: 07/02/20 18:39 Dose: 40 mg Documented by: Piperacillin Sod/Tazobactam (Sod 3.375 gm/ Sodium Chloride) 50 mls @ 100 mls/hr IV ONETIME ONE Stop: 07/02/20 14:58 Last Admin: 07/02/20 15:06 Dose: 100 mls/hr Documented by: Vancomycin HCl 1.5 gm/ Sodium (Chloride) 500 mls @ 333 mls/hr IV ONETIME ONE Stop: 07/02/20 16:00 Last Admin: 07/02/20 15:18 Dose: Not Given Documented by: Vancomycin HCl 1.5 gm/ Premix 300 mls @ 300 mls/hr IV ONETIME ONE Stop: 07/02/20 15:02 Last Admin: 07/02/20 15:11 Dose: 300 mls/hr Documented by: Vancomycin HCl 1.5 gm/ Premix 300 mls @ 300 mls/hr IV ONETIME ONE Stop: 07/02/20 15:18 Last Admin: 07/02/20 17:48 Dose: Not Given Documented by: REMDESIVIR (EUA) 200 mg/ (Sodium Chloride) 250 mls @ 250 mls/hr IV ONETIME ONE Stop: 07/02/20 19:33 Last Admin: 07/02/20 22:05 Dose: 250 mls/hr Documented by: Ceftriaxone Sodium/Dextrose (Rocephin In Dextrose,Iso-Osm 1 Gm/50 Ml) Confirm Administered Dose 50 mls @ as directed .ROUTE .STK-MED ONE Stop: 07/03/20 19:59 Last Admin: 07/03/20 20:17 Dose: 100 mls/hr Documented by: Insulin Aspart (Novolog) 0 unit SUBCUT TIDAC [facility]; Protocol - Exam General: Alert, Oriented, Cooperative Neck: Trachea Midline Lungs: Clear to Auscultation, Normal Respiratory Effort. No: Crackles, Wheezing Cardiovascular: Regular Rate, Regular Rhythm GI/Abdominal Exam: Soft, Non-Tender, No Distention Back Exam: Normal Inspection Extremities: Normal Range of Motion, No Pedal Edema Skin: Warm, Dry Sepsis Event Note - Evaluation Sepsis Screening Result: No Definite Risk - Focused Exam Vital Signs: Vital Signs Temp Pulse Resp BP Pulse Ox 07/04/20 17:17 18 93 L 07/04/20 16:05 98.2 F 81 18 140/78 94 L 07/04/20 11:13 208.4 F H 80 18 155/94 H 92 L 07/04/20 08:25 97.7 F 69 18 140/93 H 93 L - Problem List Review Problem List Initiated/Reviewed/Updated: Yes - My Orders Last 24 Hours: My Active Orders 07/04/20 12:00 Remdesivir (Eua) [Remdesivir (EUA)] 100 mg Sodium Chloride 0.9% [Normal Saline] 100 ml IV Q24H - Plan Plan:: Assessment/Plan: COVID-19 infection: Remdesivir 100mg Days 2-5 (5 doses total), Dexamethasone 6mg PO , Combivent INH for dyspnea, Oxygen support (provide oxygen via NC to maintain O2 sats above 90%). Lovenox 60mg BID, IV Fluid Bolus as needed. Monitor CBC, CMP. Prone positioning. Tylenol for Pain/Fever. Pneumonia: Ceftriaxone 1gm Q24hr, Azithromycin 500mg Q24HR, IV Fluids as needed (patient has good PO intake), monitor AM CBC Hyperglycemia: Patient on low dose insulin sliding scale.
[2020-07-04] MEDS: cefTRIAXone 1 GM in Sodium Chloride 0.9% 50 ML IV SCH (20:23)
[2020-07-04] MEDS: Azithromycin 500 MG in Sodium Chloride 0.9% 250 ML IV SCH (20:32)
[2020-07-05] MEDS: Albuterol/Ipratropium 4 GM Inhalation Spray INH SCH ×4 (02:30→11:20)
[2020-07-05] MEDS: Enoxaparin 150 MG/1 ML Syringe SUBCUT SCH (07:41)
[2020-07-05 08:07] LABS: BLOOD UREA NITROGEN,BUN 18 mg/dL (7.0-18.0); CARBON DIOXIDE,CO2 26.3 mmol/L (21.0-32.0); CHLORIDE,CL 103 mmol/L (98-107); GLUCOSE RANDOM 228 mg/dL (74-106); POTASSIUM,K 4.2 mmol/L (3.5-5.1); SODIUM,NA 140 mmol/L (136-145)
[2020-07-05] MEDS: Dexamethasone 4 MG Tab PO SCH (08:14)
[2020-07-05] MEDS: Ferrous Sulfate 325 MG Tab PO SCH (08:14)
[2020-07-05] MEDS: Insulin Aspart 100 Units/ML 3 ML Pen SUBCUT SCH ×2 (08:14→13:52)
--- NOTE | 2020-07-05 10:44 | PCM.DCSUM1 ---
Discharge Summary - Hospital Course Free Text/Narrative:: Patient was admitted for acute hypoxic respiratory failure due to COVID infection with possible community acquired pneumonia but upon discharge patients respiratory condition was most likely attributed to her COVID infection. . Patient states that she was first tested positive for COVID 10 days prior to admissions but did not have any significant symptoms. Patient states that her symptoms of SOB and cough had become significantly worse 24 hrs prior to ad mission. Patient has no cardiac, respiratory or GI PMH. Patient quit smoking 3 years ago and denies asthma. Pt denies using oxygen at home but required between 2-3L O2 during admission. Patient was treated with remdevisir, dexamethasone, antibiotics and oxygen therapy as needed. Upon discharge patient had 02 saturations in the 95-96% range on room air. - Discharge Data Discharge Date: 07/05/20 Discharge Disposition: Home, Self-Care 01 Condition: Good - Referral to Home Health Primary Care Physician: PCP None - Patient Instructions Showering/Bathing: February Shower Notify Provider of: Fever, Increased Pain, Nausea and/or Vomiting - Discharge Plan Home Medications: Home Meds Ferrous Sulfate 325 mg PO DAILY #60 tablet 06/28/20 [Rx] Referrals: Luca Avilez MD [Resident] - 07/11/20 1:30 pm - Discharge Summary/Plan Comment DC Time >30 min.: No - General Info Date of Service: 07/05/20 Subjective Update: Patient states that she feels better this morning. Denies SOB on exertion. Breathing comfortably on room air. Denies fever, chills, nausea, diarrhea, chest pain, SOB. - Review of Systems General: Denies: Fever, Chills Pulmonary: Denies: Shortness of Breath, Pleuritic Chest Pain, Cough Cardiovascular: Denies: Chest Pain, Palpitations, Dyspnea on Exertion, Orthopnea Gastrointestinal: Denies: Abdominal Pain, Diarrhea, Nausea Musculoskeletal: Denies: Back Pain Neurological: Denies: Headache - Patient Data Vitals - Most Recent: Last Vital Signs Temp 98.3 F 07/05/20 08:18 Pulse 85 07/05/20 08:18 Resp 18 07/05/20 03:00 BP 140/97 H 07/05/20 08:18 Pulse Ox 97 07/05/20 08:18 Weight - Most Recent: 290 lb I&O - Last 24 hours: Intake & Output 07/04/20 07/05/20 07/05/20 22:59 06:59 14:59 Intake Total 1100 900 Output Total 1800 1100 Balance -700 -200 Lab Results - Last 24 hrs: Laboratory Results - last 24 hr 07/04/20 07/04/20 07/05/20 Range/Units 12:56 17:12 06:20 WBC (4.0-11.0) K/uL RBC (4.30-5.90) M/uL Hgb (12.0-16.0) g/dL Hct (36.0-46.0) % MCV (80.0-98.0) fL MCH (27.0-32.0) pg MCHC (31.0-37.0) g/dL RDW Std Deviation (28.0-62.0) fl RDW Coeff of Mei (11.0-15.0) % Plt Count (150-400) K/uL MPV (7.40-12.00) fL Neut % (Auto) (48.0-80.0) % Lymph % (Auto) (16.0-40.0) % [place] % (Auto) (0.0-15.0) % Eos % (Auto) (0.0-7.0) % Baso % (Auto) (0.0-1.5) % Neut # (Auto) (1.4-5.7) K/uL Lymph # (Auto) (0.6-2.4) K/uL [place] # (Auto) (0.0-0.8) K/uL Eos # (Auto) (0.0-0.7) K/uL Baso # (Auto) (0.0-0.1) K/uL Nucleated RBC % /100WBC Nucleated RBCs # K/uL Sodium 140 (136-145) mmol/L Potassium 4.2 (3.5-5.1) mmol/L Chloride 103 (98-107) mmol/L Carbon Dioxide 26.3 (21.0-32.0) mmol/L BUN 18 (7.0-18.0) mg/dL Creatinine 0.7 (0.6-1.0) mg/dL Est Cr Clr Drug Dosing 89.48 mL/min Estimated GFR (MDRD) > 60.0 ml/min Glucose 228 H (74-106) mg/dL POC Glucose 273 H 322 H (60-110) mg/dL Calcium 8.8 (8.5-10.1) mg/dL Total Bilirubin 0.2 (0.2-1.0) mg/dL AST 41 H (15-37) IU/L ALT 92 H (14-63) IU/L Alkaline Phosphatase 93 (46-116) U/L Total Protein 6.8 (6.4-8.2) g/dL Albumin 3.0 L (3.4-5.0) g/dL Globulin 3.8 (2.6-4.0) g/dL Albumin/Globulin Ratio 0.8 L (0.9-1.6) 07/05/20 07/05/20 Range/Units 06:28 06:36 WBC 5.68 (4.0-11.0) K/uL RBC 4.13 L (4.30-5.90) M/uL Hgb 8.2 L (12.0-16.0) g/dL Hct 28.2 L (36.0-46.0) % MCV 68.3 L (80.0-98.0) fL MCH 19.9 L (27.0-32.0) pg MCHC 29.1 L (31.0-37.0) g/dL RDW Std Deviation 45.2 (28.0-62.0) fl RDW Coeff of Mei 18 H (11.0-15.0) % Plt Count 358 (150-400) K/uL MPV 9.20 (7.40-12.00) fL Neut % (Auto) 63.5 (48.0-80.0) % Lymph % (Auto) 30.1 (16.0-40.0) % [place] % (Auto) 6.2 (0.0-15.0) % Eos % (Auto) 0.0 (0.0-7.0) % Baso % (Auto) 0.2 (0.0-1.5) % Neut # (Auto) 3.6 (1.4-5.7) K/uL Lymph # (Auto) 1.7 (0.6-2.4) K/uL [place] # (Auto) 0.4 (0.0-0.8) K/uL Eos # (Auto) 0.0 (0.0-0.7) K/uL Baso # (Auto) 0.0 (0.0-0.1) K/uL Nucleated RBC % 0.0 /100WBC Nucleated RBCs # 0 K/uL Sodium (136-145) mmol/L Potassium (3.5-5.1) mmol/L Chloride (98-107) mmol/L Carbon Dioxide (21.0-32.0) mmol/L BUN (7.0-18.0) mg/dL Creatinine (0.6-1.0) mg/dL Est Cr Clr Drug Dosing mL/min Estimated GFR (MDRD) ml/min Glucose (74-106) mg/dL POC Glucose 211 H (60-110) mg/dL Calcium (8.5-10.1) mg/dL Total Bilirubin (0.2-1.0) mg/dL AST (15-37) IU/L ALT (14-63) IU/L Alkaline Phosphatase (46-116) U/L Total Protein (6.4-8.2) g/dL Albumin (3.4-5.0) g/dL Globulin (2.6-4.0) g/dL Albumin/Globulin Ratio (0.9-1.6) PAMELA Results - Last 24 hrs: Microbiology 07/02/20 15:00 Aerobic Blood Culture - Preliminary Blood - Venous - Lab Draw NO GROWTH AFTER 2 DAYS Anaerobic Blood Culture - Preliminary NO GROWTH AFTER 2 DAYS 07/02/20 14:46 Aerobic Blood Culture - Preliminary Blood - Venous NO GROWTH AFTER 2 DAYS Anaerobic Blood Culture - Preliminary NO GROWTH AFTER 2 DAYS Med Orders - Current: Current Medications Acetaminophen (Tylenol) 650 mg PO Q4H PRN PRN Reason: Pain Last Admin: 07/04/20 16:04 Dose: 650 mg Documented by: Albuterol/Ipratropium (Combivent Respimat) 0 gm INH Q4H [facility] Last Admin: 07/05/20 09:29 Dose: Not Given Documented by: Dexamethasone (Dexamethasone) 6 mg PO DAILY [facility] Last Admin: 07/05/20 08:14 Dose: 6 mg Documented by: Enoxaparin Sodium (Lovenox) 130 mg SUBCUT Q12H [facility] Last Admin: 07/05/20 07:41 Dose: Not Given Documented by: Ferrous Sulfate (Ferrous Sulfate) 325 mg PO DAILY [facility] Last Admin: 07/05/20 08:14 Dose: 325 mg Documented by: Guaifenesin (Robitussin) 100 mg PO Q4H PRN PRN Reason: Cough Last Admin: 07/05/20 08:15 Dose: 100 mg Documented by: Azithromycin 500 mg/ Sodium (Chloride) 250 mls @ 250 mls/hr IV Q24H [facility] Last Admin: 07/04/20 20:32 Dose: 250 mls/hr Documented by: REMDESIVIR (EUA) 100 mg/ (Sodium Chloride) 100 mls @ 100 mls/hr IV Q24H [facility] Last Admin: 07/04/20 13:02 Dose: 100 mls/hr Documented by: Ceftriaxone Sodium/Dextrose 1 (gm/ Premix) 50 mls @ 100 mls/hr IV Q24H [facility] Insulin Aspart (Novolog) 0 unit SUBCUT TIDAC [facility]; Protocol Last Admin: 07/05/20 08:14 Dose: 4 unit Documented by: Ondansetron HCl (Zofran) 4 mg IVPUSH Q4H PRN PRN Reason: Nausea Last Admin: 07/02/20 21:14 Dose: 4 mg Documented by: Discontinued Medications Acetaminophen (Tylenol) 650 mg PO Q4H PRN PRN Reason: Pain (Mild 1-3)/fever Albuterol (Ventolin Hfa) 4 gm INH ONETIME ONE Stop: 07/02/20 13:32 Last Admin: 07/02/20 13:52 Dose: Not Given Documented by: Albuterol (Ventolin Hfa) 4 gm INH ONETIME ONE Stop: 07/02/20 13:46 Last Admin: 07/02/20 13:51 Dose: 2 puff Documented by: Albuterol/Ipratropium (Combivent Respimat) 0 gm INH Q4H PRN PRN Reason: Dyspnea Last Admin: 07/03/20 20:36 Dose: 1 puff Documented by: Albuterol/Ipratropium (Combivent Respimat) 0 gm INH Q4H [facility] Last Admin: 07/04/20 11:16 Dose: Not Given Documented by: Dexamethasone (Dexamethasone) 8 mg PO ONETIME ONE Stop: 07/02/20 13:35 Last Admin: 07/02/20 14:02 Dose: 8 mg Documented by: Enoxaparin Sodium (Lovenox) 40 mg SUBCUT Q24H [facility] Last Admin: 07/02/20 18:39 Dose: 40 mg Documented by: Piperacillin Sod/Tazobactam (Sod 3.375 gm/ Sodium Chloride) 50 mls @ 100 mls/hr IV ONETIME ONE Stop: 07/02/20 14:58 Last Admin: 07/02/20 15:06 Dose: 100 mls/hr Documented by: Vancomycin HCl 1.5 gm/ Sodium (Chloride) 500 mls @ 333 mls/hr IV ONETIME ONE Stop: 07/02/20 16:00 Last Admin: 07/02/20 15:18 Dose: Not Given Documented by: Vancomycin HCl 1.5 gm/ Premix 300 mls @ 300 mls/hr IV ONETIME ONE Stop: 07/02/20 15:02 Last Admin: 07/02/20 15:11 Dose: 300 mls/hr Documented by: Vancomycin HCl 1.5 gm/ Premix 300 mls @ 300 mls/hr IV ONETIME ONE Stop: 07/02/20 15:18 Last Admin: 07/02/20 17:48 Dose: Not Given Documented by: REMDESIVIR (EUA) 200 mg/ (Sodium Chloride) 250 mls @ 250 mls/hr IV ONETIME ONE Stop: 07/02/20 19:33 Last Admin: 07/02/20 22:05 Dose: 250 mls/hr Documented by: Ceftriaxone Sodium 1 gm/ (Sodium Chloride) 50 mls @ 100 mls/hr IV Q24H [facility] Last Admin: 07/04/20 20:23 Dose: Not Given Documented by: Ceftriaxone Sodium/Dextrose (Rocephin In Dextrose,Iso-Osm 1 Gm/50 Ml) Confirm Administered Dose 50 mls @ as directed .ROUTE .STK-MED ONE Stop: 07/03/20 19:59 Last Admin: 07/03/20 20:17 Dose: 100 mls/hr Documented by: Ceftriaxone Sodium/Dextrose (Rocephin In Dextrose,Iso-Osm 1 Gm/50 Ml) Confirm Administered Dose 50 mls @ as directed .ROUTE .STK-MED ONE Stop: 07/04/20 19:56 Last Admin: 07/04/20 20:23 Dose: 100 mls/hr Documented by: Insulin Aspart (Novolog) 0 unit SUBCUT TIDAC [facility]; Protocol - Exam General: Reports: Oriented, Cooperative, No Acute Distress HEENT: Reports: EOMI Lungs: Reports: Clear to Auscultation, Normal Respiratory Effort. Denies: Crackles, Wheezing Cardiovascular: Reports: Regular Rate, Regular Rhythm GI/Abdominal Exam: Soft, Non-Tender, No Distention Back Exam: Reports: Normal Inspection Extremities: Normal Range of Motion Skin: Reports: Warm, Dry
[2020-07-05] MEDS: REMDESIVIR (EUA) 100 MG in Sodium Chloride 0.9% 100 ML IV SCH (11:28)
[2020-07-05 12:33] VITALS: BP 140/82; PULSE 76
[2020-07-05 14:43] LABS: HEMOGLOBIN A1C 9.1 % (4.5-6.2)
[2020-07-05] MEDS ORDERED: cefTRIAXone 1 GM in Premix Bag 1 BAG IV SCH (19:45)
== END 2020-07-05 14:40 | disposition home or self-care (01) | DRG 137 ==
LOC: MW.ED 13:08 → MW.MS 15:53 → OBSVTOIN 17:01 → MW.MS 07-03 13:05
PROVIDERS: ADMIT Student in an Organized Health Care Education/Training Program; ATTEND Student in an Organized Health Care Education/Training Program
PROC: XW033E5 Introduction of Remdesivir Anti-infective into Peripheral Vein, Percutaneous Approach, New Technology Group 5 (ICD-10-PCS; principal; 2020-07-02)
PROC: XW033E5 Introduction of Remdesivir Anti-infective into Peripheral Vein, Percutaneous Approach, New Technology Group 5 (ICD-10-PCS; 2020-07-03)
PROC: XW033E5 Introduction of Remdesivir Anti-infective into Peripheral Vein, Percutaneous Approach, New Technology Group 5 (ICD-10-PCS; 2020-07-04)
DX: U07.1 COVID-19 (principal); J96.01 Acute respiratory failure with hypoxia; J12.89 Other viral pneumonia; Z68.42 Body mass index [BMI] 45.0-49.9, adult; E66.9 Obesity, unspecified; E11.65 Type 2 diabetes mellitus with hyperglycemia; Z88.1 Allergy status to other antibiotic agents; Z79.899 Other long term (current) drug therapy; Z90.49 Acquired absence of other specified parts of digestive tract; Z87.891 Personal history of nicotine dependence
CPT/HCPCS: 36415; 71045; 71045-26; 80053; 82962; 83036; 83605; 83880; 84484; 85025; 87040; 93005; 94640; 94664; 96365; 96375; 99283; 99285-25; A9270-GY; J0456; J0696; J1650; J1815-GY; J2405; J2543; J3370; J3535-GY; J7050; J8540; U0002